=== PATIENT | male | born 1970 | race Caucasian/White ===

== ENCOUNTER 2020-07-25 21:09 | Emergency (ER) | payer SELFPAY ==
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
[2020-07-25 21:15] VITALS: BP 141/82; PULSE 101; RESP 20; TEMP 37.1; O2SAT 97
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
[2020-07-25 21:43] LABS: Basophils Absolute Auto 0.05 K/mm3 (0.00-0.10); Basophils Percent Auto 0.8 % (0.0-1.0); Eosinophils Absolute Auto 0.05 K/mm3 (0.02-0.50); Eosinophils Percent Auto 0.8 % (1.0-6.0); Hematocrit 39.4 % (40.0-54.0); Hemoglobin 13.5 g/dL (14.0-18.0); Immature Granulocyte Absolute 0.07 K/mm3 (0.00-0.00); Immature Granulocyte Percent A 1.1 % (0.0-0.0); Lymphocytes Absolute Auto 1.65 K/mm3 (1.10-4.50); Lymphocytes Percent Auto 24.8 % (18.0-42.0); Mean Corpuscular HGB Conc 34.3 g/dL (32.0-36.0); Mean Corpuscular Hemoglobin 34.2 pg (27.0-31.0); Mean Corpuscular Volume 99.7 fL (78.0-102.0); Mean Platelet Volume 8.3 fl (8.7-11.0); Monocytes Absolute Auto 0.69 K/mm3 (0.10-0.90); Monocytes Percent Auto 10.4 % (2.0-11.0); Neutrophils Absolute Auto 4.1 K/mm3 (1.7-7.2); Neutrophils Percent Auto 62.1 % (50.0-70.0); Platelet Count Result 303 K/mm3 (150-420); Red Blood Count 3.95 M/mm3 (4.70-6.10); Red Cell Distribution Width 13.2 % (11.6-14.4); White Blood Count 6.7 K/mm3 (4.8-10.8)
[2020-07-25 21:59] LABS: Alanine Aminotransferase 20 U/L (16-63); Albumin Level 2.7 g/dL (3.4-5.0); Alkaline Phosphatase 69 U/L (46-116); Anion Gap 8 mmol/L (8-16); Aspartate Amino Transferase 25 U/L (15-37); Bilirubin,Total 0.4 mg/dL (0.00-1.00); Blood Urea Nitrogen 5 mg/dL (7-18); Calcium 8.7 mg/dL (8.5-10.1); Carbon Dioxide 27 mmol/L (21-32); Chloride 106 mmol/L (98-108); Estimated Glomerular Filt Rate > 60; Glucose 101 mg/dL (70-99); Osmolality Calculated 289 mOsm/kg (285-295); Sodium 141 mmol/L (136-145); Total Protein 6.5 g/dL (6.4-8.2)
[2020-07-25 23:57] VITALS: BP 154/90; PULSE 84; RESP 18; TEMP 37.2; O2SAT 98
== END 2020-07-26 00:06 | disposition home or self-care (01) ==
PROVIDERS: Emergency Provider Family Medicine; PCP Family Medicine
DX: S30.0XXA Contusion of lower back and pelvis, initial encounter (principal); J44.9 Chronic obstructive pulmonary disease, unspecified; W22.8XXA Striking against or struck by other objects, initial encounter
CPT/HCPCS: 36415; 74177; 80053; 85025; 99282; 99284; Q9965

== ENCOUNTER 2021-11-23 14:31 | Outpatient (CLI) | payer OTHER, SELFPAY ==
--- NOTE | ~2021-11-23 | XR_ITS ---
XR wrist RT min 3V DATE: 11/23/2021 14:47 INDICATION: Right generalized wrist pain for 5 days TECHNIQUE: 4 views COMPARISON: None FINDINGS: No fracture or dislocation, periosteal reaction or bone destruction, erosive change or debi drocalcinosis is detected. Joint spaces appear relatively well preserved. IMPRESSION: No significant abnormality Reviewed, dictated and finalized at location A. O NEWS EDITOR IMPRESSION: No significant abnormality
== END 2021-11-23 14:32 | disposition home or self-care (01) ==
LOC: CHSIMG 14:33
PROVIDERS: PCP Physician Assistant; Visit Provider Physician Assistant
DX: M25.531 Pain in right wrist (principal)
CPT/HCPCS: 73110

== ENCOUNTER 2022-04-18 13:26 | Emergency (ER) | payer OTHER, SELFPAY ==
--- NOTE | ~2022-04-18 | CT_ITS ---
EXAMINATION: CT facial bones wo con DATE: 04/18/2022 14:50 INDICATION: Right facial swelling. Toothache. TECHNIQUE: Computed tomography (CT) of the facial bones and maxillofacial region was performed withou t intravenous contrast. Automated exposure control and iterative reconstruction technique were employ ed. The dose-length product was 281.08 mGy-cm. COMPARISON: None. FINDINGS: There is mild mucosal thickening in the paranasal sinuses. There is extensive dental diseas e. Tooth 5 demonstrates a carious lesion. Tooth 4 is broken with periapical lucencies. Tooth 11 demon strates a carious lesion. Many teeth are absent. A left mandibular molar that may be tooth 18 demonst rates a carious lesion. There are 2 right mandibular molars with carious lesions that may be teeth 31 and 32. Tooth 31 also has periapical lucencies with breech of the lingual cortex of the alveolar pro cess. There is extensive fat stranding in right lower face, consistent with inflammation. There is se tiffanie cervical spondylosis. IMPRESSION: 1. Extensive dental disease with right facial cellulitis. Reviewed, dictated and finalized at location A.
[2022-04-18 13:30] VITALS: BP 133/91; PULSE 93; RESP 20; TEMP 36.3; O2SAT 99
[2022-04-18] MEDS: KETOROLAC 30 MG/ML VIAL (*BKC) IM (14:31)
[2022-04-18] MEDS: cefTRIAXone 1 GM VIAL IM (14:33)
[2022-04-18] MEDS: LIDOCAINE HCL 1% LOCAL INJ 10 ML VIAL (14:34)
[2022-04-18 15:20] VITALS: BP 133/91; PULSE 94; RESP 20; TEMP 37.1; O2SAT 99
--- NOTE | 2022-04-18 15:30 | ED.DENTAL ---
HPI - Dental/Oral General Chief complaint: Dental/Oral Stated complaint: DENTAL PAIN Time Seen by Provider: 04/18/22 13:29 Source: patient History of Present Illness HPI Narrative: right facial swelling, after starting antibx and analgesia Rx on 04/17/2022. Complaint: tooth pain Onset (ago): week(s) (2 weeks, awaiting dental appt.) Duration: constant Severity: moderate Severity scale (1-10): 8 Relieving factors: prescription analgesics Exacerbating factors: chewing Context: history of dental caries and poor dental care Associated symptoms: ear pain Treatment prior to arrival: oral analgesic Related Data Home Medications Medication Instructions Recorded Confirmed allopurinol 100 mg tablet 1 tablet PO DAILY 04/18/22 04/18/22 atorvastatin 40 mg tablet 40 tablet PO DAILY 04/18/22 04/18/22 fenofibrate nanocrystallized 145 1 tablet PO DAILY 04/18/22 04/18/22 mg tablet losartan 50 mg tablet 1 tablet PO DAILY 04/18/22 04/18/22 Allergies Allergy/AdvReac Type Severity Reaction Status Date / Time lisinopril Allergy Swelling Verified 03/30/21 10:04 Review of Systems Review of Systems: All systems reviewed & are unremarkable except as noted in HPI and below Constitutional: Constitutional: Reports no additional constitutional complaints Eyes: Eyes: Reports no additional eye complaints ENT: Reports system reviewed and no additional complaints, except as documented Cardiovascular: Cardiovascular: Reports no additional cardiovascular complaints Respiratory: Respiratory: Reports no additional respiratory complaints Gastrointestinal: Gastrointestinal: Reports no additional gastrointestinal complaints Musculoskeletal: Musculoskeletal: Reports no additional musculoskeletal complaints Integumentary/Breasts: Skin/Breast: Reports system reviewed and no additional complaints, except as docu Neurologic: Reports system reviewed and no additional complaints, except as documented Psychiatric: Psychiatric: Reports no additional psychiatric complaints Endocrine: Endocrine: Reports no additional endocrine complaints Hematologic/Lymphatic: Hematologic/Lymphatic: Reports no additional hematologic/lymphatic complaints Allergic/Immunologic: Allergic/Immunologic: Reports no additional allergic/immunologic complaints PMFSH Past Medical History Medical History Cellulitis of face Dental caries Exam Const: General: healthy appearing and no acute distress Nutritional Appearance: well nourished Orientation/consciousness: patient oriented x3 Limitations: no limitations HENMT: Head: normal to inspection Ears: external ears normal, TM's normal bilaterally and EAC's normal General nose exam: Normal external nose present and Normal nares present Face and sinus: normal facial exam and sinuses nontender Mouth: Yes Normal oral and palatal mucosa present and Yes moist mucous membranes Teeth and gingiva: abnormal dentition and abnormal tooth and associated gingiva Throat: posterior oropharynx normal Other: mild right facial swelling. no acute pharyngeal or ear abnormality. Eyes: Conjunctivae: conjunctivae normal Pupils: Equal, round and reactive pupils present EOM: EOMs intact bilaterally Neck: Neck: normal visual inspection, no lymphadenopathy and no meningeal signs Chest: Chest palpation & inspection: normal inspection of the chest Resp: Effort & Inspection: normal respiratory effort Auscultation: clear to auscultation bilaterally Cardio: Rate: regular rate Rhythm: regular rhythm GI: GI Palp: Yes Soft to palpation and No Tenderness to palpation present (GI) Auscultation: normal bowel sounds : General: Yes bladder normal to palpation and Yes no CVA tenderness Back/Spine/Pelvis: Back: no CVA tenderness Skin: General skin exam: normal color Rashes: no rashes Wounds: no wounds Neuro: General: patient oriented x3, moves all extremities, no meningeal signs, no
== END 2022-04-18 15:38 | disposition home or self-care (01) ==
PROVIDERS: Emergency Provider Emergency Medicine; PCP Physician Assistant
DX: K02.9 Dental caries, unspecified (principal); L03.211 Cellulitis of face
CPT/HCPCS: 70486; 96372; 99284; J0696; J1885

== ENCOUNTER 2022-08-23 01:43 | Day surgery (SDC) | payer OTHER, SELFPAY ==
[2022-08-06 14:24] VITALS: BMI 19.7
[2022-08-23 10:33] VITALS: BP 147/92; PULSE 72; RESP 20; TEMP 36.3; O2SAT 100; BMI 19.5
[2022-08-23] MEDS: LACTATED RINGERS 1,000 ML 150 ML IV CONT (10:43)
--- NOTE | 2022-08-23 10:53 | P.HP_ITS ---
History of Present Illness History of Present Illness Consent: Risks, benefits, and alternatives have been discussed and questions answered. Patient agrees to proceed with procedure. Chief complaint: hx colon polyps, neoplasm screening Narrative: Álvaro Byrne is a 51 year old male Referred for screening colonoscopy. Patient reports a prior history of colon polyps 3 years ago. He states 3 years prior to that he had multiple colon polyps. Patient reports his weight appetite and bowel movements are normal. He occasionally will have bright red blood per rectum attributed to hemorrhoids. This was noticed especially after prep for colonoscopy patient denies any weight loss. Family history is noncontributory. Patient presents today for screening colonoscopy. He does report ongoing alcohol use. Review of Systems Review of Systems: Review of systems noncontributory. [facility] Past Medical History Medical History Cellulitis of face Dental caries Social History Social History Smoking packs per day: 1 Smoking cigarettes per day: 20.0 Years smoked: 42 Smoking pack-years: 42.00 Smoking status: Current every day smoker Tobacco type: cigarettes Alcohol intake: current Alcohol use details: on occasion Substance use: current Substance use type: marijuana Living arrangements: with family Spiritual care concerns: No Meds Home Medications and Allergies Home Medications Medication Instructions Recorded Confirmed Type allopurinol 100 mg tablet 1 tablet PO DAILY 04/18/22 08/23/22 History atorvastatin 40 mg tablet 40 tablet PO DAILY 04/18/22 08/23/22 History fenofibrate nanocrystallized 145 1 tablet PO DAILY 04/18/22 08/23/22 History mg tablet losartan 50 mg tablet 1 tablet PO DAILY 04/18/22 08/23/22 History peg 3350-electrolytes 236 240 ml PO Q10M #4,000 mL 07/31/22 08/23/22 Rx gram-22.74 gram-6.74 gram-5.86 gram solution (Golytely) budesonide-formoterol HFA 160 2 puff inhalation DAILY 08/06/22 08/23/22 History mcg-4.5 mcg/actuation aerosol inhaler (Symbicort) Allergies Allergy/AdvReac Type Severity Reaction Status Date / Time lisinopril Allergy Swelling Verified 08/23/22 10:32 Vital Signs Vital Signs - 24 hr 08/23/22 10:33 Temperature 97.4 F L Pulse Rate 72 Respiratory Rate 20 Blood Pressure 147/92 H Pulse Oximetry 100 Oxygen Delivery Room Air Exam Narrative: Physical exam reveals patient to be alert. Vital signs stable. HEENT exam is unremarkable. Patient is anicteric. Lungs are clear to auscultation and percussion. Heart is without murmur or extra sounds. Abdomen bowel sounds are present soft nontender with no organomegaly. Digital external rectal exam is normal. Assessment and Plan Assessment and plan (1) History of colon polyps: Code(s): Z86.010 - Personal history of colonic polyps Status: Acute Assessment and Plan: Patient has a history of colon polyps previously. Plan for colonoscopy at this time and consider this at 3-5 years in the future.
[2022-08-23 11:43] VITALS: BP 116/76; PULSE 74; RESP 18; O2SAT 98
[2022-08-23 11:53] VITALS: BP 121/81; PULSE 70; RESP 17; O2SAT 99
[2022-08-23 12:03] VITALS: BP 134/92; PULSE 69; RESP 17; O2SAT 99
== END 2022-08-23 12:12 | disposition home or self-care (01) ==
PROVIDERS: PCP Physician Assistant; Visit Provider Internal Medicine Gastroenterology
PROC: 0DJD8ZZ Inspection of Lower Intestinal Tract, Via Natural or Artificial Opening Endoscopic (ICD-10-PCS; CPT 45378; principal; 2022-08-23 11:30)
DX: Z12.11 Encounter for screening for malignant neoplasm of colon (principal); D12.5 Benign neoplasm of sigmoid colon; K62.5 Hemorrhage of anus and rectum; K57.30 Diverticulosis of large intestine without perforation or abscess without bleeding; K64.8 Other hemorrhoids; F17.210 Nicotine dependence, cigarettes, uncomplicated; F12.90 Cannabis use, unspecified, uncomplicated
CPT/HCPCS: 45385; 88305; J2704; J7120

== ENCOUNTER 2024-02-02 18:20 | Emergency (ER) | payer OTHER, SELFPAY ==
--- NOTE | ~2024-02-02 | CT_ITS ---
EXAMINATION: CT abdomen pelvis w con DATE: 02/02/2024 19:29 INDICATION: right lower quadrant pain N/V diarrhea fever TECHNIQUE: Computed tomography (CT) of the abdomen and pelvis was performed with 100 mL Omnipaque-350 intravenous contrast. Automated exposure control and iterative reconstruction technique were employe d. The dose-length product was 364.60 mGy-cm. COMPARISON: None. FINDINGS: Lower thorax: Unremarkable Liver: Mildly enlarged. Biliary/Gallbladder: Gallbladder wall hyperemia. No gallstones detected. The common bile duct measure s 8 mm in the josie hepatis. No obstructing stone or mass detected. Pancreas: Mild atrophy. Mild dilation of the proximal pancreatic duct in the pancreatic head, with a small gas collection, which was noted previously and presumably related to an incompetent sphincter o f Oddi. Spleen: Normal. Adrenals:No mass. Kidneys: No suspicious mass, obstructing stone, or hydronephrosis. GI tract: Moderate distal esophageal and gastric wall edema. No small or large bowel dilation. 4.1 x 6.2 cm fluid and gas collection along the medial aspect of the cecum with mild rim enhancement and an associated ruptured diverticulum. Normal appendix. Mesentery/Peritoneum: No ascites, mass, or free air. Retroperitoneum: No mass. Pelvis: Pelvic organs are within normal limits. Soft Tissues: Soft tissues and body wall unremarkable. Bones: No acute osseous finding. IMPRESSION: Acute cecal diverticulitis, complicated by an adjacent 6.2 cm pericolonic abscess. Moderate esophagitis/gastritis. Mild hepatomegaly. Gallbladder wall hyperemia with dilation of the common bile duct. No obstructing stone or mass detect ed. Correlate with biliary labs. Reviewed, dictated and finalized at location K. IMPRESSION: Acute cecal diverticulitis, complicated by an adjacent 6.2 cm pericolonic absce ss. Moderate esophagitis/gastritis. Mild hepatomegaly. Gallbladder wall hyperemia with dilation of the common bile duct. No obstructin g stone or mass detected. Correlate with biliary labs.
[2024-02-02 18:23] VITALS: BP 120/81; PULSE 92; RESP 20; TEMP 37.9; O2SAT 99
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
[2024-02-02] MEDS: SODIUM CHLORIDE 0.9% IV 1,000 ML 999 ML IV CONT (18:43)
[2024-02-02] MEDS: MORPHINE SULFATE (*CRX) 2 MG/ML INJ IV PUSH (18:44)
[2024-02-02] MEDS: ONDANSETRON INJ 4 MG/2 ML VIAL IV PUSH (18:44)
[2024-02-02] MEDS: ACETAMINOPHEN 325 MG TABLET 650 MG PO (18:44)
[2024-02-02 18:52] LABS: Basophils Absolute Auto 0.05 K/mm3 (0.00-0.10); Basophils Percent Auto 0.4 % (0.0-1.0); Eosinophils Absolute Auto 0.09 K/mm3 (0.02-0.50); Eosinophils Percent Auto 0.6 % (1.0-6.0); Hematocrit 41.9 % (40.0-54.0); Hemoglobin 14.3 g/dL (14.0-18.0); Immature Granulocyte Absolute 0.13 K/mm3 (0.00-0.00); Immature Granulocyte Percent A 0.9 % (0.0-0.0); Lymphocytes Absolute Auto 1.77 K/mm3 (1.10-4.50); Lymphocytes Percent Auto 12.5 % (18.0-42.0); Mean Corpuscular HGB Conc 34.1 g/dL (32-36); Mean Corpuscular Hemoglobin 32.4 pg (27.0-31.0); Mean Platelet Volume 8.7 fl (8.7-11.0); Monocytes Absolute Auto 1.66 K/mm3 (0.10-0.90); Monocytes Percent Auto 11.7 % (2.0-11.0); Neutrophils Percent Auto 73.9 % (50.0-70.0); Platelet Count Result 420 K/mm3 (150-420); Red Blood Count 4.41 M/mm3 (4.70-6.10); Red Cell Distribution Width 11.9 % (11.6-14.4); White Blood Count 14.2 K/mm3 (4.8-10.8)
[2024-02-02 19:09] LABS: Alanine Aminotransferase 24 U/L (16-63); Albumin Level 2.5 g/dL (3.4-5.0); Alkaline Phosphatase 59 U/L (46-116); Anion Gap 12 mmol/L (8-16); Aspartate Amino Transferase 40 U/L (15-37); Bilirubin,Total 0.3 mg/dL (0.00-1.00); Blood Urea Nitrogen 9 mg/dL (7-18); Calcium 8.8 mg/dL (8.5-10.1); Carbon Dioxide 28 mmol/L (21-32); Chloride 99 mmol/L (98-108); Estimated CRCL calculation 56 ml/min; Estimated Glomerular Filt Rate 56; Glucose 110 mg/dL (70-99); Lipase 29 U/L (16-77); Osmolality Calculated 287 mOsm/kg (285-295); Potassium 3.6 mmol/L (3.5-5.1); Sodium 139 mmol/L (136-145); Total Protein 7.4 g/dL (6.4-8.2)
[2024-02-02 19:14] LABS: Lactic Acid Reflex 1.6 mmol/L (0.4-2.0)
[2024-02-02 19:27] LABS: Ethanol < 3 mg/dL (0-6)
[2024-02-02 19:31] VITALS: BP 129/79; PULSE 90; RESP 18; TEMP 37.8; O2SAT 97
[2024-02-02 19:31] LABS: Influenza A QL RT-PCR Negative (Negative); Influenza B QL RT-PCR Negative (Negative); RSV RNA, RT-PCR Negative (Negative); SARS-CoV-2 RNA PCR Negative (Negative)
--- NOTE | 2024-02-02 19:59 | PC.NURSE ---
Pt resting, VSS, CT report back and ERP Dr Rodriguez discussing results c pt and s.o. and POC. Pt wanting transfer to [place].
[2024-02-02] MEDS: SODIUM CHLORIDE 0.9% IV 1,000 ML 125 ML IV CONT (20:11)
[2024-02-02] MEDS: PIPERACILLN/TAZ 3.375GM/NS50ML 3.375 GM/50 ML BAG IVPB (20:21)
[2024-02-02] MEDS: NICOTINE (*PBKC) 21 MG PATCH 1 PATCH TRANSDERM (20:27)
[2024-02-02 21:00] VITALS: BP 98/62; PULSE 94; RESP 18; TEMP 37.7; O2SAT 94
--- NOTE | 2024-02-02 21:09 | PC.NURSE ---
Pt resting, using urinal at bedside, Pt informed that Dr Powers accepted at [facility] for transfer and will await callback for bed assignment
[2024-02-02 21:34] VITALS: BP 113/72; PULSE 86; RESP 18; O2SAT 95
--- NOTE | 2024-02-02 21:37 | PC.NURSE ---
IVF increased to 200ml/hr per ERP order. Pt wanting something more for pain and to help him relax to sleep tonight. New orders obtained.
[2024-02-02] MEDS: diazePAM (*CRX) 5 MG TABLET PO (21:45)
[2024-02-02 22:07] VITALS: BP 95/72; PULSE 85; RESP 18; TEMP 37.5; O2SAT 95
--- NOTE | 2024-02-09 13:11 | PC.NURSE ---
blood culture reviewed, no growth in 5 days
== END 2024-02-02 22:07 | disposition short-term general hospital (02) ==
PROVIDERS: Emergency Provider Emergency Medicine; PCP Physician Assistant
DX: K57.20 Diverticulitis of large intestine with perforation and abscess without bleeding (principal); E78.5 Hyperlipidemia, unspecified; I10 Essential (primary) hypertension; Z79.899 Other long term (current) drug therapy; F17.210 Nicotine dependence, cigarettes, uncomplicated; Z20.822 Contact with and (suspected) exposure to COVID-19
CPT/HCPCS: 36415; 74177; 80053; 80307; 83605; 83690; 85025; 87040; 87637; 96361; 96365; 96375; 99285; A9270; J2270; J2405; J2543; J7030; Q9967

== ENCOUNTER 2024-07-14 23:36 | Emergency (ER) | payer OTHER, SELFPAY ==
[2024-07-14 23:37] VITALS: BP 134/84; PULSE 103; RESP 18; TEMP 36.7; O2SAT 95
--- NOTE | 2024-07-14 23:43 | ED.ANIMALBIT ---
HPI - Animal Bite General Chief Complaint: Animal Bite Stated Complaint: dog bite to left arm Time Seen by Provider: 07/14/24 23:43 Source: patient Mode of arrival: ambulatory Limitations: no limitations History of Present Illness HPI narrative: patient is a 53-year-old male with a left posterior arm dog bite. The dog is his own dog that is up-to-date on shots. It was a provoked event over a hot dog. Patient needs a tetanus booster tonight. MD complaint: animal bite and animal-related injury ( His own dog with shots up-to-date per patient) Onset (ago): minute(s) (30) Animal: dog Description of animal: household pet Mechanism: bite Location: other ( left upper arm posterior) Location - Extremities: Left: arm Pain description: sharp and constant Severity scale (1-10): 3 Context: provoked ( fight was over a hot dog) Associated symptoms: none Treatments prior to arrival: wound dressing(s) Related Data Patient tetanus UTD: No Home Medications Medication Instructions Recorded Confirmed allopurinol 100 mg tablet 1 tablet PO DAILY 04/18/22 02/02/24 atorvastatin 40 mg tablet 40 tablet PO DAILY 04/18/22 02/02/24 fenofibrate nanocrystallized 145 1 tablet PO DAILY 04/18/22 02/02/24 mg tablet losartan 50 mg tablet 1 tablet PO DAILY 04/18/22 02/02/24 budesonide-formoterol HFA 160 2 puff inhalation BID 08/06/22 02/02/24 mcg-4.5 mcg/actuation aerosol inhaler (Symbicort) Allergies Allergy/AdvReac Type Severity Reaction Status Date / Time lisinopril Allergy Swelling Verified 02/02/24 18:27 Review of Systems Review of Systems: All systems reviewed & are unremarkable except as noted in HPI and below Constitutional: Constitutional: Reports no additional constitutional complaints Eyes: Eyes: Reports no additional eye complaints ENT: Reports system reviewed and no additional complaints, except as documented Cardiovascular: Cardiovascular: Reports no additional cardiovascular complaints Respiratory: Respiratory: Reports no additional respiratory complaints Gastrointestinal: Gastrointestinal: Reports no additional gastrointestinal complaints Genitourinary: Genitourinary: Reports no additional male genitourinary complaints Musculoskeletal: Musculoskeletal: Reports no additional musculoskeletal complaints Integumentary/Breasts: Skin/Breast: Reports system reviewed and no additional complaints, except as docu Neurologic: Reports system reviewed and no additional complaints, except as documented Psychiatric: Psychiatric: Reports no additional psychiatric complaints Endocrine: Endocrine: Reports no additional endocrine complaints Hematologic/Lymphatic: Hematologic/Lymphatic: Reports no additional hematologic/lymphatic complaints Allergic/Immunologic: Allergic/Immunologic: Reports no additional allergic/immunologic complaints PMFSH Past Medical History Medical History Cellulitis of face Dental caries Social History Social History Smoking packs per day: 1 Smoking cigarettes per day: 20.0 Years smoked: 42 Smoking pack-years: 42.00 Smoking status: Current every day smoker Tobacco type: cigarettes Alcohol intake: current Alcohol use details: on occasion Substance use: current Substance use type: marijuana Living arrangements: with family Spiritual care concerns: No Exam Const: General: healthy appearing Nutritional Appearance: well nourished Orientation/consciousness: patient oriented x3 HENMT: Head: normal to inspection Ears: external ears normal Face/Nose/Sinus: Normal external nose present Eyes: Conjunctivae: conjunctivae normal Pupils: Equal, round and reactive pupils present EOM: EOMs intact bilaterally Neck: Neck: normal visual inspection Chest: Chest palpation & inspection: normal inspection of the chest Resp: Effort & Inspection: normal respiratory effort
[2024-07-15] MEDS: TETANUS,DIPHTHERIA,AC PERTUSSIS ADULT 0.5 ML (ADACEL) IM (00:05)
[2024-07-15] MEDS: AMOXICILLIN/CLAVULANATE K 875-125 MG TAB 1 TABLET PO (00:07)
[2024-07-15] MEDS: NEOMYCIN/POLYMYXIN/BACITRACIN OINTMENT PACKET 1 PACKET TOPICAL (00:15)
== END 2024-07-15 00:25 | disposition home or self-care (01) ==
PROVIDERS: Emergency Provider Emergency Medicine; PCP Physician Assistant
DX: S41.152A Open bite of left upper arm, initial encounter (principal); F17.210 Nicotine dependence, cigarettes, uncomplicated; Z23 Encounter for immunization; W54.0XXA Bitten by dog, initial encounter
CPT/HCPCS: 12001; 90715; 99283; A9270

== ENCOUNTER 2025-01-30 07:26 | Emergency (ER) | payer OTHER, SELFPAY ==
--- OUTSIDE RECORDS SUMMARY | 2025-01-30 07:29 | XMS_ITS | Clinical Summary ---
Author Organization [facility] Address [address] [place] [address] Care Team Providers Care Home Health Scheduler Name Role Phone Ulises Markham Primary Care Provider [phone] Allergies No known active allergies Medications budesonide-formo terol (SYMBICORT) 160-4.5 MCG/ACT inhaler Inhale 2 puffs into the lungs 2 (two) times daily. 11/05/2017 Active gemfibrozil 600 MG tablet Take 1 tablet by mouth daily. 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 Gender Identity Not on file Sexual Orientation Not on file Last Filed Vital Signs Vital Sign Reading Time Taken Comments Blood Pressure 134/93 07/26/2021 2:32 PM CDT Pulse 94 07/26/2021 2:45 PM CDT Temperature 37.9 C (100.3 F) 07/26/2021 2:32 PM CDT Respiratory Rate 15 07/26/2021 2:45 PM CDT Oxygen Saturation 96% 07/26/2021 2:45 PM CDT Inhaled Oxygen Concentration - - Weight 65.4 kg (144 lb 2 oz) 07/26/2021 2:32 PM CDT Height 182.9 cm (6') 07/26/2021 2:32 PM CDT Body Mass Index 19.55 07/26/2021 2:32 PM CDT Plan of Treatment Health Maintenance Due Date Last Done Comments Colorectal Cancer Screening Colonoscopy (10 Years) 1969 Annual Physical 1972 Pneumococcal Vaccine: Pediat rics (0 to 5 Years) and At-Risk Patients (6 to 64 Years) (1 of 2 - PCV) 1975 Hepatitis C 1987 DTaP, Tdap and Td Vaccines ( 1 - Tdap) 1988 Hepatitis B Vaccines (1 of 3 - 19+ 3-dose series) 1988 Zoster Vaccines (1 of 2) 2019 COVID-19 Vaccine (1 - 2023-2 5 season) 2024 Influenza Adult (#1) 2024 Meningococcal B Vaccine Aged Out No l onger eligible based on patient's age to complete this topic Meningococcal Vaccine Aged Out No lizette nathalie eligible based on patient's age to complete this topic RSV Immunizations Under 20 Months Aged Out No longer eligible based on patient's age to complete this topic Insurance [employer] Care Teams Home Health Scheduler Relationship Specialty Start Date End Date Ulises Markham PA [address] [place] [address] PCP - General PHYSICIAN LINING VAMPER 11/21/21
--- OUTSIDE RECORDS SUMMARY | 2025-01-30 07:29 | XMS_ITS | Data Portability ---
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 He was found to have complicated cecal diverticulitis. He had a pericolic abscess which was managed with antibiotics and an IR drain. He has been doing well at home. He denies any abdominal pain. He is tolerating a diet and having bowel movements with no issues. His drain has had minimal output. He is seeing IR in today for a drain study. Hopefully he can be removed. I explained to him that we need to proceed with a colonoscopy to rule out any underlying sinister pathology. Will plan on doing this in the 6 to 8 weeks to give his colon some time to heal. We could consider elective resection after that however he will need to quit drinking and smoking prior to surgery given the risk for perioperative complications. Not available 02/18/2024 15:23:14 04/03/2024 04/03/2024 The history and physical has been reviewed, the patient has been examined and no change has occurred in the patient's condition since the history and physical was completed. [email or web address] Not available 04/03/2024 11:46:27 Plan of Treatment Reminders Order Date Submit Date Provider Last Modified By Organization Details Last Modified Time Details Appointments None record ed. Lab None record ed. Referral None record ed. Procedures None record ed. Surgeries None record ed. Imaging None record ed. Medication Orders None record ed. Patient TargetsNo targets recorded. Patient InstructionsNo instructions recorded. Reason for Referral None Reported. Results Created Date Observation Date Name Description Value Unit Range Abnormal Flag Note LastModifiedBy Organization Detail LastModifiedTime 02/06/20 24 02/12/2024 C ANAER OBIC anaerobic culture (new) abnormal Print Date/ Time: 2023 13:39 CDT Patie n REEVE S, KEN N t: Micro biolo gy - Wound s and Tissu es Legen d: c=Cor recte d, F=Res ult Comme nt, S=Minerva cepti ble, I=Int ermed iate, R=Res istan t, N/A=N ot Appli cable PROCE DURE: Anaer obic Cultu re [] ACCES NUBIA: 75 SOURC E: Other BODY SITE: Abdom en COLLE CTED DATE/ TIME: 2023 13:51 CDT RECEI JEFFERY DATE/ TIME: 2023 14:49 CDT START DATE/ TIME: 2023 14:49 CDT FREE TEXT SOURC E: abdom inal absce ss, IR drain age AM ENDED REPOR TS Amend ed Repor t [] Verif ied Date/ Time: 2023 13:39 CDT Many Bacte roide s fragi lis Group This organ ism may poten tiall y be treat ed empir icall y. Susce ptibi lity testi ng will not be perfo rmed The antim icrob ial agent of choic e for Bacte roide s fragi lis group is metro nidaz ole; piper acill in/ta zobac maloney is an alter nativ e. (Prin ciple s and Pract ice of Infec tious Disea ses 2009. Eulalia justice et.al .) FI NAL REPOR TS Final Repor t [] Verif ied Date/ Time: 2023 14:33 CDT Many Bacte roide s fragi lis This organ ism may poten tiall y be treat ed empir icall y. Susce ptibi lity testi ng will not be perfo rmed The antim icrob ial agent of choic e for Bacte roide s fragi lis group is metro nidaz ole; piper acill in/ta zobac maloney is an alter nativ e. (Prin ciple s and Pract ice of Infec tious Disea ses 2009. Eulalia justice et.al .) [place] ELIMI NARY REPOR TS Preli minar y Repor t [] Verif ied Date/ Time: 2023 15:45 CDT Cultu re in progr ess Not Available [place] Only - [facility] [address] [facility], [place], [address], 02/12/2024 14:39:20 02/06/20 24 02/11/2024 C ANAER OBIC anaerobic culture (new) abnormal Print Date/ Time: 2023 14:33 CDT Patie n REEVE S, KEN N t: Micro biolo gy - Wound s and Tissu es Legen d: c=Cor recte d, F=Res ult Comme nt, S=Minerva cepti ble, I=Int ermed iate, R=Res istan t, N/A=N ot Appli cable PROCE DURE: Anaer obic Cultu re [] ACCES NUBIA: 003 751 SOURC E: Other BODY SITE: Abdom en COLLE CTED DATE/ TIME: 2023 13:51 CDT RECEI JEFFERY DATE/ TIME: 2023 14:49 CDT START DATE/ TIME: 2023 14:49 CDT FREE TEXT SOURC E: abdom inal absce ss, IR drain age FI NAL REPOR TS Final Repor t [] Verif ied Date/ Time: 2023 14:33 CDT Many Bacte roide s fragi lis This organ ism may poten tiall y be treat ed empir icall y. Susce ptibi lity testi ng will not be perfo rmed The antim icrob ial agent of choic e for Bacte roide s fragi lis group is metro nidaz ole; piper acill in/ta zobac maloney is an alter nativ e. (Prin ciple s and Pract ice of Infec tious Disea ses 2009. Eulalia justice et.al .) [place] ELIMI NARY REPOR TS Preli minar y Repor t [] Verif ied Date/ Time: 2023 15:45 CDT Cultu re in progr ess Not Available [place] Only - [facility] [address], [place], [address], 02/11/2024 15:33:39 02/06/20 24 02/06/2024 cultu re, anaer obic anaerobic culture abnormal print date/ time: 2023 13:39 cdt patie n reeve s, ken n t: micro biolo gy - wound s and tissu es legen d: c=cor recte d, F=res ult comme nt, S=minerva cepti ble, I=int ermed iate, R=res istan t, n/a=n ot appli cable proce dure: anaer obic cultu re [] acces nubia: 751 sourc e: other body site: abdom en colle cted date/ time: 2023 13:51 cdt recei jeffery date/ time: 2023 14:49 cdt start date/ time: 2023 14:49 cdt free text sourc e: abdom inal absce ss, ir drain age am ended repor ts amend ed repor t [] verif ied date/ time: 2023 13:39 cdt many bacte roide s fragi lis group this organ ism may poten tiall y BE treat ed empir icall y. susce ptibi lity testi ng will not BE perfo rmed the antim icrob ial agent of choic e for bacte roide s fragi lis group IS metro nidaz ole; piper acill in/ta zobac maloney IS an alter nativ e. (prin ciple s and pract ice of infec tious disea ses 2009. eulalia justice ET.al .) fi nal repor ts final repor t [] verif ied date/ time: 2023 14:33 cdt many bacte roide s fragi lis this organ ism may poten tiall y BE treat ed empir icall y. susce ptibi lity testi ng will not BE perfo rmed the antim icrob ial agent of choic e for bacte richmond s fragi lis group IS metro nidaz ole; piper acill in/ta zobac maloney IS an alter nativ e. (prin ciple s and pract ice of infec tious disea ses 2009. eulalia ll ET.al .) pr elimi nary repor ts preli minar y repor t [] verif ied date/ time: 2023 15:45 cdt cultu re in progr ess Not Available [facility] [address] [place] [address], [id number], 11/04/2024 07:28:30 04/03/20 24 04/09/2024 surgi mesha patho logy study tissue exam biopsy [facility] [address] [address] Ph. [phone] Doc Kimble MD, PhD, Medic al Direc tor MARIO Wilson JR., CRISSY Jensen MD Patie nt: KEN CALDERÓN Sampl e ID: [id number] Repor t Statu s: Final :1 1969 Case #: [id number] Age: 53 Y Gende r: M Date Colle cted: 04/03 MRN # : [id number] Date Recei jeffery: 04/03 Repor christie Date: 04/09 FINAL DIAGN OSIS: Colon , hepat ic flexu re polyp , biops y : - Tubul ar adeno idalia Elect atif richard Verif ied by Jenny Perdomo MD Elect atif patterson 04/09 12:28 SPECI MEN SOURC E: Colon , hepat ic flexu re polyp , biops y GROSS DESCR IPTIO N: The speci men conta iner( s) and requi sitio n have the same patie nt name. Recei jeffery in 10% neutr al buffe red forma jenny for forma jenny-f ixed paraf fin-e mbedd ed secti ons label ed A, hepat ic flexu re polyp is a singl e fragm ent of shaffer- miller soft tissu e that is 0.3 cm in great est dimen nubia. The speci men is entir zaire submi tted for histo logic study in one casse tte. CLINI MESHA INFOR MATIO N: Histo ry of diver ticul osis of colon with perfo ratio n. Not Available [facility] Only - [facility] [address] [place] [address], [id number], 04/09/2024 13:29:55 Result Notes None recorded. Problems Name Problem SNOMED Code Status Onset Date Resolution Date Notes Provider Name and Address Organization Details Recorded Time Diverticulitis of colon with perforation 74835184 Active 2023 Crissy Powers MD [address] [place] [address], [phone] [place] [address] 4 15:23:37 Problem Notes None recorded. Procedures Surgical History Date Name Laterality Status Provider Name and Address Organization Details Recorded Time colonoscopy completed Yessenia Cisneros [facility] 04/15/2024 12:14:19 Imaging Results None recorded. Procedure Notes None recorded. Medical Equipment None Reported. Allergies Allergen ID Allergen Name Allergen Category Reaction Reaction Severity Criticality Documentation Date Start Date Code Code System Note Provider Name and Address Organization Details Recorded Time [id number] enalapril Not available other severe Not available 02/18/2024 3827 RxNorm tongu e swell ing Not Available Not Available Not Available Medications Name Sig Start Date Stop Date Status Note LastModified by Organization Details LastModified Time losartan 50 mg tablet 04/03 completed Not Available Not Available Not Available atorvastatin 40 mg tablet active Not Available Not Available Not Available ibuprofen 800 mg tablet 02/17 completed Not Available Not Available Not Available moxifloxacin 400 mg tablet 02/17 completed Not Available Not Available Not Available allopurinol 100 mg tablet active Not Available Not Availabl e Not Available amoxicillin 875 mg-potassium clavulanate 125 mg tablet 02/17 completed Not Available Not Available Not Available fenofibrate nanocrystalliz ed 145 mg tablet active Not Available Not Available Not Available Symbicort 160 mcg-4.5 mcg/actuation HFA aerosol inhaler active Not Available Not Available Not Available BD PosiFlush Normal Saline 0.9 % injection syringe FOR FLUSH 10 ML S DAILY active Not Available Not Available No t Available Vitals Date Recorded Body height Body mass index (BMI) Body weight Heart rate Systolic blood pressure Diastolic blood pressure Provider Name and Address Organization Details Last Updated DateTime 4 182.88 cm 20.9 kg/m2 24106.9 4 g 80 /min 121 mm[Hg] 84 mm[Hg] Yessenia Cisneros [facility] 4 12:00:05 Date Recorded Body mass index (BMI) Heart rate Heart rate Body height Respiratory rate Body mass index (BMI) Body height Body weight Body weight Respiratory rate Body temperature Body temperature Oxygen saturation Oxygen saturation in Arterial blood by Pulse oximetry Oxygen saturation Oxygen saturation in Arterial blood by Pulse oximetry Systolic blood pressure Diastolic blood pressure Systolic blood pressure Diastolic blood pressure Provider Name and Address Organization Details Last Updated DateTime 4 20.07 kg/m2 83 /min 83 /min 182.88 cm 16 /min 20.07 kg/m2 182.88 cm 89206.6 7076 g 67260.6 7076 g 16 /min 98 [degF] 98 [degF] 98 % 98 % 98 % 98 % 122 mm[Hg] 87 mm[Hg] 122 mm[Hg] 87 mm[Hg] Not Available [facility] 4 05:28:32 Social History None recorded. Functional Status None recorded. Mental Status None recorded. Family History Nothing Reported. Medical History No medical history recorded. Past Encounters Encounter ID Performer Location Encounter Start Date Encounter Closed Date Diagnosis/Indication Diagnosis SNOMED-CT Code Diagnosis ICD10 Code Diagnosis Note [id number] Crissy Powers MD [address] ([place]) [address] [place] [address] 02/18/2024 11:09:42 02/18/2024 13:00:08 Diverticulitis of colon with perforation 10204817 K57.20 [id number] Crissy Powers MD [facility] ([facility]) [address] [place] [address], [address] [place] [address] 04/03/2024 09:47:22 04/10/2024 08:38:49 [id number] Rober Caban MD [facility] ASC GI Anesthesi a [address] [place] [address] 04/03/2024 09:47:20 05/29/2024 04:02:38 Health Concerns Section Related Observation LastModified by Organization Detai ls LastModified Time None Recorded Concern Status LastModified by Organization Details LastModified Time None Recorded Advance Directives Directive None Recorded Payers Encounter Date Sequence Insurance Name Policy Number Policy Craig Covered Member ID Craig Member ID Guarantor Name 02/18/2024 1 [facility] ON OR AFTER 05/18/21 (MEDICAID REPLACEMENT - HMO) Álvaro Byrne [id number] Álvaro Byrne 04/03/2024 1 [facility] ON OR AFTER 05/18/21 (MEDICAID REPLACEMENT - HMO) Álvaro Byrne [id number] Álvaro Byrne 04/03/2024 1 [facility] ON OR AFTER 05/18/21 (MEDICAID REPLACEMENT - HMO) Álvaro Byrne [id number] Álvaro Byrne Notes Date Note Type Note Provider Name and Address Organization Details Recorded Time 02/18/2024 text/html Álvaro is here f or a hospital follow up. He was recently hospitalized at [facility] for perforated diverticulitis. He stated his only issue today is with the IR drain. He stated he called them Saturday because he was having issues with low drain output. He was instructed to only flush it with half the amount of saline. Yesterday he could not flush it at all, but he has an appointment to see them today after his appointment with us. His only discomfort is with the drain. He denies any other abdominal pain. He states he is having bowel movements BID. He denies any nausea or vomiting. He states his appetite is fine. He took his last dose of the antibiotic, Moxifloxacin, yesterday. He reports he has colonoscopies every 3 years, with his last one being done at [facility]. He cannot remember exactly when it was done or who performed it. He denies any family history of colon/rectal cancer or colon polyps. Note he states he is currently smoking a little less than a pack a day of cigarettes .History of present illness documented by nursing staff, verified and amended as necessary by the Attending Provider who electronically signs this note. Crissy Powers MD [address] [place] [address], [phone], [facility] 02/18/2024 15:24:09 04/03/2024 text/html [facility] OP HPIRep orted bypatient.Pre-Procedure Diagnosis:Recent diverticulitis with perforation Date of Procedure:04/03/2024 Proposed Procedure/Surgery:Colon oscopy, with possible biopsy, and or polypectomy Physician Performing the Procedure:Dr. Crissy Powers Proposed Anesthetic:IV Conscious Sedation Chief Complaint:Hospitalizati on in January for diverticulitis with perforation. Treated with antiobiotics and IR drain placement. Current Medication and dosages:See chart Allergies:See chart Crissy Powers MD [address] [place] [address], [phone], [facility] 04/03/2024 11:46:30 04/03/2024 text/html [facility] PRE-ANEST HETIC EVALUATIONReported bypatient.Reason for Visit:PROPOSED PROCEDURE: Colonoscopy; SURGEON: Solomon Review of Systems General:Exercise tolerance moderate; Denies SOB, MONACO, PND; Denies chest pain or chest tightness Cardiac:Denies coronary disease; Hyperlipidemia Pulmonary:Mild COPD ,stable ; Current every day smoker; Smoking Hx, 1 ppd 44 years Prior Anesthetic Complication:no history of anesthesia complications Family Anesthetic Hx:no history of anesthesia complications Physical Exam: AirwayMP II TeethMissing teeth; Poor dentition NeckFull range of motion CardiovascularRegular rate and rhythm RespiratoryDimished breath sounds bilaterally, but clear GastrointestinalNPO status >6 hrs solids, >2 hrs clear liquids Vital Signs:Vital signs reviewed. Please refer to nursing preop note for values Assessment:ASA PS: II Plan:MAC Discussion:I have discussed with the patient the anesthetic plan, alternatives, pertinent risks, and complications; including but not limited to PONV, dental injury, sore throat, RI, stroke, etc. All questions were answered. Patient/patient's guardian verbalize(s) understanding and agree(s) to proceed. Rober Caban MD [address] [place] [address], [phone], [facility] 04/03/2024 10:56:34
[2025-01-30 07:30] VITALS: BP 125/95; PULSE 110; RESP 20; TEMP 36.8; O2SAT 95
--- NOTE | 2025-01-30 07:46 | ED_ITS ---
HPI - Animal Bite General Chief Complaint: Animal Bite Stated Complaint: dog bite Time Seen by Provider: 01/30/25 07:31 History of Present Illness HPI narrative: Patient reports that the was the victim of an intention dog attack. Was attacked by a single dog. Demi mix. At approximately 0700 today's date. Patient reports sustained injuries to his left cheek, left elbow, left hand, left flank, and left leg and thigh. No loc in the event. patient has been the victim of similar recent animal attack and has had a tetanus shot within the last 12 months. Denies any chest pain or sob. Related Data Home Medications ?Medication ?Instructions ?Recorded ?Confirmed ?Last Taken ?Type allopurinol 100 mg tablet 1 tablet PO DAILY 04/18/22 02/02/24 Unknown History atorvastatin 40 mg tablet 40 tablet PO DAILY 04/18/22 02/02/24 Unknown History fenofibrate nanocrystallized 145 1 tablet PO DAILY 04/18/22 02/02/24 Unknown History mg tablet losartan 50 mg tablet 1 tablet PO DAILY 04/18/22 02/02/24 Unknown History budesonide-formoterol HFA 160 2 puff inhalation BID 08/06/22 02/02/24 Unknown History mcg-4.5 mcg/actuation aerosol inhaler (Symbicort) Allergies Allergy/AdvReac Type Severity Reaction Status Date / Time lisinopril Allergy Swelling Verified 01/30/25 08:34 PMFSH Past Medical History Medical History Cellulitis of face Dental caries Social History Social History Smoking packs per day: 1 Smoking cigarettes per day: 20.0 Years smoked: 42 Smoking pack-years: 42.00 Smoking status: Current every day smoker Tobacco type: cigarettes Alcohol intake: current Alcohol use details: on occasion Substance use: current Substance use type: marijuana Living arrangements: with family Spiritual care concerns: No Exam Narrative: GEN: Awake, alert, and appropriate to situation. Well appearing, well nourished, nontoxic, NAD. HEENT: No rhinorrhea noted, mucous membranes moist. No scleral icterus or conjunctival injection. CV: Normal rate, regular rhythm, S1S2 no M/G/R. 2+ distal pulses all extremities. No peripheral edema noted. PULM: Non-labored respiration. Clear to auscultation bilaterally. No wheezes, rales, rhonchi. GI: Abdomen soft, non -tender to palpation. No rigidity, distention or guarding.? NEURO: Normal speech. No lateralizing or focal deficits noted. Left hand: General: No obvious swelling or deformity of fingers, hand or wrist. Has 2 hemostatic puncture wounds on the dorsum of the hand just above the thumb. Palpation: No tenderness on exam over metacarpals. No pain at anatomic snuff box. Non tenderness over radial styloid. Radial and ulnar pulses intact.? Active and Passive ROM: Full ROM in both hands and wrists.? 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 Wrist flexion and extension 5/5.? Inspection: Ecchymosis and 2 cm skin tear noted over the lateral epicondyle. No injuries over the antecubital fossa or the olecranon bursa. No effusion noted. No deformity noted.?? Palpation: No tenderness over the medial or lateral epicondyles nor over the antecubital fossa or the olecranon bursa. No pain or tenderness over the triceps tendon.? Active and Passive ROM: Extension intact to 180?, flexion intact to approximately 150?. Able to supinate 90? and pronate approximately 180?.? Strength: Intact throughout.? 1cm superficial abrasion on L cheeck bel ow eye. No involvement of eyes. 2 cm superficial laceration on L flank. 2 cm eccymosis on superior, anterior L t high. MDM - Animal Bite MDM Narrative Medical decision making narrative: Patient was placed in Room #:?Six Independent Historian: the patient External Source Review: patient medical records Differential diagnosis includes but not limited to:? animal attack, of multiple puncture wounds, no evidence of injury to internal organs or deep muscular skeletalstructures on exam Medications were Reviewed: lisinopril allergy Independently Interpreted by me: vital signs Medications, treatment, ED course: copious irrigation of all puncture wounds. No closures due to the nature of the wounds I see animal bite and skin tear. Dressed with petroleum jelly in bandages. Started on Augmentin. Social situation impacting patients care: The offending animal has been picked up by animal Control and the person who owns the animal is reportedly been taken into custody by police. The patient states that he does have a safe place to go home. Shared decision making:? Patient agrees to follow-up with his primary care doctor for wound check in the next 5 days Accepting physician: Jocelin SCHROEDER DIAGNOSIS: animal bite DISPOSITION: home with self-care CONDITION AT DISCHARGE:? stable Discharge Plan Discharge Clinical Impression: Bite by animal Patient Disposition: Home, Self-Care Condition: Stable Instructions: Antibiotic Form, Animal Bite (ED) Additional Instructions: He have several puncture wounds from an animal bite. This puts you at higher risk of having an infection. We are starting you on an antibiotic called Augmentin to help prevent this infection. Keep a close eye on the wounds and watch for any redness, swelling, heat. Return to the emergency department or call 911 if? you develop high fever, shaking chills, or are unable to tolerate food or? fluids, have decreased urination, or are too sick to get out of bed. Please call your doctor 1st thing on the morning of 02/01/2025 to schedule appointment to follow up to check on wound healing. Ideally this appointment will be in the next 5-7 days. Patient Language: Tanzanian Prescriptions: New amoxicillin-pot clavulanate 875-125 mg tablet 1 tablet PO Q12H Qty: 14 0RF No Action amoxicillin-pot clavulanate 875-125 mg tablet 1 tablet PO BID 10 Days Qty: 20 0RF losartan 50 mg tablet 1 tablet PO DAILY atorvastatin 40 mg tablet 40 tablet PO DAILY allopurinol 100 mg tablet 1 tablet PO DAILY fenofibrate nanocrystallized 145 mg tablet 1 tablet PO DAILY budesonide-formoterol [Symbicort] 160-4.5 mcg/actuation HFA aerosol inhaler 2 puff INHALATION BID Follow-up/Referrals: UNKNOWN,DOCTOR [Non-Staff] - Time of Disposition: 08:14
--- OUTSIDE RECORDS SUMMARY | 2025-01-30 08:37 | XMS_ITS | Clinical Summary ---
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
[2025-01-30 08:45] VITALS: BP 122/88; PULSE 98; RESP 18; O2SAT 95
== END 2025-01-30 08:45 | disposition home or self-care (01) ==
LOC: CHSED 08:35
PROVIDERS: Emergency Provider Family Medicine; PCP Physician Assistant
DX: S00.81XA Abrasion of other part of head, initial encounter (principal); S70.12XA Contusion of left thigh, initial encounter; S51.052A Open bite, left elbow, initial encounter; S61.452A Open bite of left hand, initial encounter; S31.119A Laceration without foreign body of abdominal wall, unspecified quadrant without penetration into peritoneal cavity, initial encounter; F17.210 Nicotine dependence, cigarettes, uncomplicated; W54.0XXA Bitten by dog, initial encounter
CPT/HCPCS: 99283; A9270

== ENCOUNTER 2025-11-12 22:38 | Emergency (ER) | payer OTHER, SELFPAY ==
[2025-11-12 22:45] VITALS: BP 108/79; PULSE 102; RESP 18; TEMP 37; O2SAT 97
--- OUTSIDE RECORDS SUMMARY | 2025-11-12 23:27 | XMS_ITS | Clinical Summary ---
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 Gender Identity Not on file Sexual Orientation Not on file Plan of Treatment Health Maintenance Due Date Last Done Comments Colon Cancer Screening-Colonoscopy 1969 Depression Screening 1969 Hepatitis C Screening 1969 Prostate Cancer Screening-PSA 1969 Hepatitis B Screening 1987 Regular Well Visit/Exam 18-64 1987 Zoster Vaccine (1 of 2) 2019 Influenza Vaccine (#1) 2025 DTaP/Tdap/Td Vaccine (2 - Td or Tdap) 07/15/2034 07/15/2024, 11/18/2010 Pneumococcal vaccine <65 Aged Out No longer eligible based on patient's age to complete this topic Insurance [employer] Care Teams Tunnel Form Placing Supervisor Relationship Specialty Start Date End Date Guanako Arriaza MD [address] [place] [id number] PCP - General Family Medicine 07/08/25
--- OUTSIDE RECORDS SUMMARY | 2025-11-12 23:28 | XMS_ITS | Data Portability ---
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 He was found to [...] surgery given the risk for perioperative complications. [email or web address] Not available 02/18/2024 15:23:14 04/03/2024 04/03/2024 The history and physical has been reviewed, the patient has been examined and no change has occurred in the patient's condition since the history and physical was completed. [email or web address] Not available 04/03/2024 11:46:27 Plan of Treatment [...] Anaer obic Cultu re [] ACCES NUBIA: 751 SOURC E: Other BODY SITE: Abdom [...] Disea ses 2009. Eulalia justice et.al .) CO ELIMI NARY REPOR TS Preli minar y Repor t [] Verif ied Date/ Time: 2023 15:45 CDT Cultu re in progr ess Not Available Id Only - [facility] [address], [place], [address], 02/12/2024 14:39:20 02/06/20 24 02/11/2024 C ANAER [...] Anaer obic Cultu re [] ACCES NUBIA: 751 SOURC E: Other BODY SITE: Abdom [...] Disea ses 2009. Eulalia justice et.al .) CO ELIMI NARY REPOR TS Preli minar y Repor t [] Verif ied Date/ Time: 2023 15:45 CDT Cultu re in progr ess Not Available Id Only - [facility] [address] , [place], [address], 02/11/2024 15:33:39 02/06/20 24 02/06/2024 cultu re, [...] re in progr ess Not Available Test [facility] [address] [place] [address], [address], 11/04/2024 07:28:30 04/03/20 24 04/09/2024 surgi mesha patho logy study tissue exam biopsy [facility] [address] [place] [address] Ph. [phone] Doc Kimble MD, PhD, Medic al Dire tor MARIO Wilson JR., CRISSY Jensen MD Patie nt: KEN CALDERÓN e ID: [id number] Repor t Statu s: Final :1 1969 Case #: [id number] Age: 53 Y Gende r: M Date Colle cted: 04/03 MRN # : [id number] Date Recei jeffery: 04/03 Repor christie [...] e that is 0.3 cm in [facility] nubia. The speci men is entir zaire submi tted for histo logic study in one casse tte. CLINI MES[facility] INFOR MATIO N: Histo ry of diver ticul osis of colon with perfo ratio n. Not Available [facility] - [facility] [address] [place] [address], [address], 04/09/2024 13:29:55 Result Notes None recorded. Problems Name Problem SNOMED Code Status Onset Date Resolution Date Notes Provider Name and Address Organization Details Recorded Time Diverticulitis of colon with perforation 85671420 Active 2023 Crissy Maria MD [address] [place] [address], [phone] [place] [address] 4 15:23:37 Problem Notes None recorded. Procedures Surgical History Date Name Laterality Status Provider Name and Address Organization Details Recorded Time colonoscopy completed Yessenia Amelia [facility] 04/15/2024 12:14:19 Imaging Results None recorded. Procedure Notes None recorded. Medical Equipment None Reported. Allergies Allergen ID Allergen Name Allergen Category Reaction Reaction Severity Criticality Documentation Date Start Date Code Code System Note Provider Name and Address Organization Details Recorded Time 2276845 enalapril Not available other severe Not available 02/18/2024 3827 RxNorm michael aragon ing Yessenia Amelia [facility] 4 11:54:25 Medications Name Sig Start Date Stop Date [...] index (BMI) Body weight Heart rate Systolic And Diastolic Provider Name and Address Organization Details Last Updated DateTime 02/18/2024 182.88 cm 20.9 kg/m2 66077.94 g 80 /min 121/84 mm[Hg] Yessenia Cisneros [facility] 02/18/2024 12:00:05 Date Recorded Body mass index (BMI) Heart rate Heart rate Body height Respiratory rate Body mass index (BMI) Body height Body weight Body weight Respiratory rate Body temperature Body temperature Provider Name and Address Organization Details Last Updated DateTime 4 20.07 kg/m2 83 /min 83 /min 182.88 cm 16 /min 20.07 kg/m2 182.88 cm 51529.6 7076 g 64788.6 7076 g 16 /min 98 [degF] 98 [degF] Not Available [facility] 4 18:31:02 Date Recorded Oxygen saturation Oxygen saturation Systolic And Diastolic Systolic And Diastolic Provider Name and Address Organization Details Last Updated DateTime 04/03/2024 98 % 98 % 122/87 mm[Hg] 122/87 mm[Hg] Not Available [facility] 4 05:28:32 Social History None recorded. Functional Status None recorded. Mental Status None recorded. Family History Nothing Reported. Medical History No medical history recorded. Past Encounters Encounter ID Performer Location Encounter Start Date Encounter Closed Date Diagnosis/Indication Diagnosis SNOMED-CT Code Diagnosis ICD10 Code Diagnosis IMO Codes Diagnosis Note [id number] Crissy Maria MD [address] [place] ([place]) [address] [place] [address] 02/18/2024 11:09:42 02/18/2024 13:00:08 Diverticulitis of colon with perforation 96676904 K57.20 [id number] Crissy Maria MD [facility] [place] ([place]) [address] [place] [address], [address] [place] [address] 04/03/2024 09:47:22 04/10/2024 08:38:49 [id number] Rober Caban MD [facility] GI Anesthesi a S [address] [place] [address] 04/03/2024 09:47:20 05/29/2024 04:02:38 Health Concerns Section Related Observation LastModified by Organization Detai ls LastModified Time None Recorded Concern Status LastModified by Organization Details LastModified Time None Recorded Advance Directives Directive None Recorded Payers Insurance Date Sequence Insurance Name Policy Number Policy Craig Covered Member ID Craig Member ID Guarantor Name 04/22/2024 1 [facility] ON OR AFTER 05/18/21 (MEDICAID REPLACEMENT - HMO) Álvaro Byrne [id number] Álvaro Byrne Notes Date Note Type Note Provider Name and Address Organization Details Recorded Time 02/18/2024 text/html Álvaro is here for a hospital follow up. He was recently hospitalized at [facility] for perforated diverticulitis. He stated his only [...] with his last one being done at [facility]. He cannot remember exactly when it was done or who performed it. He denies any family history of colon/rectal cancer or colon polyps. Note he states he is currently smoking a little less than a pack a day of cigarettes.History of present illness documented by nursing staff, verified and amended as necessary by the Attending Provider who electronically signs this note. Crissy Maria MD [address] [place] [address], [phone], [facility] 02/18/2024 15:24:09 04/03/2024 text/html [facility] OP HPIRep orted by PatientOutpatient History and PhysicalFor proposed anesthetic, patient reportsiv conscious sedation. For pre-procedure diagnosis, (recent diverticulitis with perforation). For date of procedure, (04/03/2024). For proposed procedure/surgery, (colonoscopy, with possible biopsy, and or polypectomy). For physician performing the procedure, (dr. crissy maria).HistoryFor chief complaint, (hospitalization in january for diverticulitis with perforation. treated with antiobiotics and ir drain placement.). For current medication and dosages, (see chart). For allergies, (see chart). Crissy Maria MD [facility], [address], [facility] 04/03/2024 11:46:30 04/03/2024 text/html [facility] PRE-ANEST HETIC EVALUATIONReported by PatientReason for VisitFor reason for visit, patient reportsproposed procedure: colonoscopyandsurgeon: erma.Review of SystemsFor general, patient reportsexercise tolerance moderate,denies sob, burt, pnd, anddenies chest pain or chest tightness. For cardiac, patient reportshyperlipidemia. For pulmonary, patient reportsmild copd ,stable __ __,current every day smoker, andsmoking hx, 1 ppd 44 years.PSH-Complication/ FM HXFor prior anesthetic complication, patient reportsno history of anesthesia complications. For family anesthetic hx, patient reportsno history of anesthesia complications.Physical ExamFor physical exam: airway, patient reportsmp ii. For teeth, patient reportsmissing teethandpoor dentition __. For neck, patient reportsfull range of motion. For cardiovascular, patient reportsregular rate and rhythm. For respiratory, patient reportsdimished breath sounds bilaterally, but clear. For gastrointestinal, patient reportsnpo status >6 hrs solids, >2 hrs clear liquids. For vital signs, patient reportsvital signs reviewed. please refer to nursing preop note for values.Assessment and PlanFor assessment, patient reportsasa ps: ii. For plan, patient reportsmac.DiscussionFo r discussion, patient reportsi have discussed with the patient the anesthetic plan, alternatives, pertinent risks, and complications; including but not limited to ponv, dental injury, sore throat, mi, stroke, etc. all questions were answered. __ verbalize(s) understanding and agree(s) to proceed.. Rober Caban MD [address] [facility], [place], [address], [facility] 04/03/2024 10:56:34
--- NOTE | 2025-11-13 00:19 | ED_ITS ---
HPI - Male Genitourinary General Chief complaint: Unspecified Stated complaint: hemorrhoids Source: patient and family Mode of arrival: ambulatory Limitations: no limitations History of Present Illness HPI Narrative: Patient is a 55-year-old male with hemorrhoids. Patient has been having hemorrhoids for many years. Normally he takes a bowel movement in the hemorrhoids return back to the internal area. This time he had hemorrhoids and they stuck outside. Patient is a moderate alcohol drinker. MD Complaint: other (Rectal pain) Onset (ago): day(s) (One) Duration: constant Location: abdomen (Rectum) Radiation: abdomen (Rectum) Severity: moderate Severity scale (1-10): 6 Quality: sharp Relieving factors: movement Exacerbating factors: bowel movement Context: other (Patient's primary doctor knows about the hemorrhoids and has referred out for surgery/GI 2 do a colonoscopy follow-up as well as hemorrhoid repair; patient has declined to repeat the colonoscopy and therefore they have not done a hemorrhoid repair as well) Associated symptoms: Reports denies other symptoms Related Data Sexually active: No Home Medications ?Medication ?Instructions ?Recorded ?Confirmed ?Last Taken ?Type allopurinol 100 mg tablet 1 tablet PO DAILY 04/18/22 0 02/02/24 Unknown History atorvastatin 40 mg tablet 40 tablet PO DAILY 04/18/22 02/02/24 Unknown History fenofibrate nanocrystallized 145 1 tablet PO DAILY 12/0902/02/24 Unknown History mg tablet losartan 50 mg tablet 1 tablet PO DAILY 04/18/22 0 02/02/24 Unknown History budesonide-formoterol HFA 160 2 puff inhalation BID 02/02/24 Unknown History mcg-4.5 mcg/actuation aerosol inhaler (Symbicort) Allergies Allergy/AdvReac Type Severity Reaction Status Date / Time lisinopril Allergy Swelling Verified 11/13/25 00:24 Review of Systems Review of Systems: All systems reviewed & are unremarkable except as noted in HPI and below Constitutional: Constitutional: Reports no additional constitutional complaints Eyes: Eyes: Reports no additional eye complaints ENT: Reports system reviewed and no additional complaints, except as documented Cardiovascular: Cardiovascular: Reports no additional cardiovascular complaints Respiratory: Respiratory: Reports no additional respiratory complaints Gastrointestinal: Gastrointestinal: Reports no additional gastrointestinal complaints Genitourinary: Genitourinary: Reports no additional male genitourinary complaints Musculoskeletal: Musculoskeletal: Reports no additional musculoskeletal complaints Integumentary/Breasts: Skin/Breast: Reports system reviewed and no additional complaints, except as docu Neurologic: Reports system reviewed and no additional complaints, except as documented Psychiatric: Psychiatric: Reports no additional psychiatric complaints Endocrine: Endocrine: Reports no additional endocrine complaints Hematologic/Lymphatic: Hematologic/Lymphatic: Reports no additional hematologic/lymphatic complaints Allergic/Immunologic: Allergic/Immunologic: Reports no additional allergic/immunologic complaints [facility] Past Medical History Medical History Cellulitis of face Dental caries Social History Social History Smoking packs per day: 1 Smoking cigarettes per day: 20.0 Years smoked: 42 Smoking pack-years: 42.00 Smoking status: Current every day smoker Tobacco type: cigarettes Alcohol intake: current Alcohol use details: on occasion Substance use: current Substance use type: marijuana Living arrangements: with family Spiritual care concerns: No Exam Const: General: healthy appearing Nutritional Appearance: well nourished Limitations: no limitations HENMT: Head: normal to inspection Ears: TM's normal bilaterally Face /Nose/Sinus: Normal external nose present Eyes: Conjunctivae: conjunctivae normal Pupils: Equal, round and reactive pupils present EOM: EOMs intact bilaterally Neck: Neck: normal visual inspection Chest: Chest palpation & inspection: normal inspection of the chest Resp: Effort & Inspection: normal respiratory effort and not labored Auscultation: clear to auscultation bilaterally and no crackles Cardio: Rate: regular rate and not bradycardic Rhythm: regular rhythm and regular rhythm Heart sounds: no murmurs GI: Inspection: non-distended GI Palp: Yes Soft to palpation and No Tenderness to palpation present (GI) Auscultation: normal bowel sounds : General: Yes bladder normal to palpation Male General Exam: Yes normal external exam Other: Rectum has for fairly large thrombosed hemorrhoids from the internal area was stuck externally; no active bleeding; exquisite tenderness Back/Spine/Pelvis: Back: no CVA tenderness Skin: General skin exam: normal color Rashes: no rashes Wounds: no wounds Neuro: General: patient oriented x3, moves all extremities and no meningeal signs Cranial nerves: Yes CN's II-XII intact bilaterally Speech: normal speech Gait exam (Neuro): Normal gait present Extrem: General: normal to inspection, no clubbing, cyanosis or edema and no pedal edema Psych: Mental Status: mental status grossly normal Affect: normal affect Attitude: cooperative Course Vital Signs Vital signs: Vital Signs Temperature 37.0 C 11/12/25 22:45 Pulse Rate 102 H 11/12/25 22:45 Respiratory Rate 18 11/12/25 22:45 Blood Pressure 108/79 11/12/25 22:45 Pulse Oximetry 97 11/12/25 22:45 Oxygen Delivery Room Air 11/12/25 22:45 Temperature 37.0 C 11/12/25 22:45 Pulse Rate 102 H 11/12/25 22:45 Respiratory Rate 18 11/12/25 22:45 Blood Pressure 108/79 11/12/25 22:45 Pulse Oximetry 97 11/12/25 22:45 Oxygen Delivery Room Air 11/12/25 22:45 MDM MDM Narrative Medical decision making narrative: Patient is a 55-year-old male with thrombosed hemorrhoids recurrent and here for evaluation and suggestions. Patient will need to see the GI/surgeon specialist to have this repaired. I reviewed we do not tackled his problem in the emergency room per se. He is to continue softening his stool with multiple means and use topical hemorrhoid cream. [place] given in small quantities to assist with pain as he can not sleep due to the pain. He understands that the Selk[place] may thickened up his stool and cause constipation which is the opposite of our main goal but pain control is required at this time. Benefit greater than risk at this current time to use Selkirk. Differential Diagnosis Differential Diagnosis: Hemorrhoids, thrombosed hemorrhoids Discharge Plan Discharge Clinical Impression: Hemorrhoid prolapse Patient Disposition: Home Condition: Stable Instructions: Hemorrhoids (ED) Additional Instructions: Please call the surgeon/GI specialist 1st thing in the morning to get an appointment as soon as possible. You will need repair of these hemorrhoids. Patient Language: Monegasque Prescriptions: New hydrocodone-acetaminophen 5-325 mg tablet 1 tablet PO Q8H PRN (Reason: pain) Qty: 20 0RF Rx Instructions: 1-2 tabs per dose No Action amoxicillin-pot clavulanate 875-125 mg tablet 1 tablet PO Q12H Qty: 14 0RF losartan 50 mg tablet 1 tablet PO DAILY atorvastatin 40 mg tablet 40 tablet PO DAILY allopurinol 100 mg tablet 1 tablet PO DAILY fenofibrate nanocrystallized 145 mg tablet 1 tablet PO DAILY budesonide-formoterol [Symbicort] 160-4.5 mcg/actuation HFA aerosol inhaler 2 puff INHALATION BID Follow-up/Referrals: Rashi,BLAISE Montgomery [Primary Care Provider] Time of Disposition: 00:18
--- NOTE | 2025-11-13 00:19 | ED.GENADULT ---
HPI - General Adult General Chief complaint: Unspecified Stated complaint: hemorrhoids Related Data Home Medications ?Medication ?Instructions ?Recorded ?Confirmed ?Last Taken ?Type allopurinol 100 mg tablet 1 tablet PO DAILY 04/18/22 02/02/24 Unknown History atorvastatin 40 mg tablet 40 tablet PO DAILY 04/18/22 02/02/24 Unknown History fenofibrate nanocrystallized 145 1 tablet PO DAILY 04/18/22 02/02/24 Unknown History mg tablet losartan 50 mg tablet 1 tablet PO DAILY 04/18/22 02/02/24 Unknown History budesonide-formoterol HFA 160 2 puff inhalation BID 08/06/22 02/02/24 Unknown History mcg-4.5 mcg/actuation aerosol inhaler (Symbicort) Allergies Allergy/AdvReac Type Severity Reaction Status Date / Time lisinopril Allergy Swelling Verified 01/30/25 08:34 [facility] Past Medical History Medical History Cellulitis of face Dental caries Social History Social History Smoking packs per day: 1 Smoking cigarettes per day: 20.0 Years smoked: 42 Smoking pack-years: 42.00 Smoking status: Current every day smoker Tobacco type: cigarettes Alcohol intake: current Alcohol use details: on occasion Substance use: current Substance use type: marijuana Living arrangements: with family Spiritual care concerns: No Course Vital Signs Vital signs: Vital Signs Temperature 37.0 C 11/12/25 22:45 Pulse Rate 102 H 11/12/25 22:45 Respiratory Rate 18 11/12/25 22:45 Blood Pressure 108/79 11/12/25 22:45 Pulse Oximetry 97 11/12/25 22:45 Oxygen Delivery Room Air 11/12/25 22:45 Temperature 37.0 C 11/12/25 22:45 Pulse Rate 102 H 11/12/25 22:45 Respiratory Rate 18 11/12/25 22:45 Blood Pressure 108/79 11/12/25 22:45 Pulse Oximetry 97 11/12/25 22:45 Oxygen Delivery Room Air 11/12/25 22:45 MDM Differential Diagnosis Differential Diagnosis: error Discharge Plan Discharge Clinical Impression: Hemorrhoid prolapse Patient Disposition: Home Condition: Stable Instructions: Hemorrhoids (ED) Additional Instructions: Please call the surgeon/GI specialist 1st thing in the morning to get an appointment as soon as possible. You will need repair of these hemorrhoids. Patient Language: Greek Prescriptions: New hydrocodone-acetaminophen 5-325 mg tablet 1 tablet PO Q8H PRN (Reason: pain) Qty: 20 0RF Rx Instructions: 1-2 tabs per dose No Action amoxicillin-pot clavulanate 875-125 mg tablet 1 tablet PO Q12H Qty: 14 0RF losartan 50 mg tablet 1 tablet PO DAILY atorvastatin 40 mg tablet 40 tablet PO DAILY allopurinol 100 mg tablet 1 tablet PO DAILY fenofibrate nanocrystallized 145 mg tablet 1 tablet PO DAILY budesonide-formoterol [Symbicort] 160-4.5 mcg/actuation HFA aerosol inhaler 2 puff INHALATION BID Follow-up/Referrals: Rashi,BLAISE Montgomery [Primary Care Provider] Time of Disposition: 00:18
[2025-11-13] MEDS: HYDROcodone/acetaminophen (*CRX) 10-325 MG TABLET 1 TAB PO (00:33)
== END 2025-11-13 00:38 | disposition home or self-care (01) ==
PROVIDERS: Emergency Provider Emergency Medicine; PCP Physician Assistant
DX: K64.8 Other hemorrhoids (principal); F17.210 Nicotine dependence, cigarettes, uncomplicated
CPT/HCPCS: 99283; A9270

== ENCOUNTER 2025-11-13 12:04 | Observation (INO) | payer OTHER, SELFPAY ==
[2025-11-13 12:32] VITALS: BP 114/75; PULSE 75; RESP 18; TEMP 36.7; O2SAT 97
--- NOTE | 2025-11-13 14:10 | ED_ITS ---
HPI - General Adult General Chief complaint: Unspecified Stated complaint: hemorrhoid Time Seen by Provider: 11/13/25 14:02 History of Present Illness HPI narrative: Patient is a 55-year-old male who presents to the ER with rectal pain. He reports he was seen at [place] emergency department last night for the same complaint. He endorses a history of hemorrhoids but they have never gotten this bad. Usually they are internal but he reports now they are outside of his rectum. He reports he was prescribed narcotics last night but he has been unable to fill the prescription. Patient's medical chart indicates he has a history of high blood pressure, diverticulitis and high cholesterol. He denies any abdominal pain, chest pain, or recent fevers. Related Data Home Medications ?Medication ?Instructions ?Recorded ?Confirmed ?Last Taken ?Type allopurinol 100 mg tablet 1 tablet PO DAILY 04/18/22 0 02/02/24 Unknown History atorvastatin 40 mg tablet 40 tablet PO DAILY 04/18/22 02/02/24 Unknown History fenofibrate nanocrystallized 145 1 tablet PO DAILY 12/0902/02/24 Unknown History mg tablet losartan 50 mg tablet 1 tablet PO DAILY 04/18/22 0 02/02/24 Unknown History budesonide-formoterol HFA 160 2 puff inhalation BID 02/02/24 Unknown History mcg-4.5 mcg/actuation aerosol inhaler (Symbicort) Allergies Allergy/AdvReac Type Severity Reaction Status Date / Time lisinopril Allergy Swelling Verified 11/13/25 14:43 Review of Systems 2 Review of Systems: All systems reviewed & are unremarkable except as noted in HPI and below PMFSH Past Medical History Medical History Cellulitis of face Dental caries Social History Social History Smoking packs per day: 1 Smoking cigarettes per day: 20.0 Years smoked: 42 Smoking pack-years: 42.00 Smoking status: Current every day smoker Tobacco type: cigarettes Alcohol intake: current Alcohol use details: on occasion Substance use: current Substance use type: marijuana Living arrangements: with family Spiritual care concerns: No Exam 2 Narrative: GENERAL: Ill appearing, well-nourished, non-toxic, in no acute distress. HEAD: Normocephalic, atraumatic. NECK: Supple. No adenopathy, no masses. RESPIRATORY: Airway patent, respirations nonlabored. Clear to auscultation bilaterally, no rales, rhonchi, wheezing. CARDIOVASCULAR: Regular rate and rhythm without murmurs, rubs, or gallops. Peripheral pulses 2+ and equal bilaterally. ABDOMINAL: Soft, nontender, nondistended, no hepatosplenomegaly. Normoactive BS. MUSCULOSKELETAL: Moves all extremities. Strength/ROM intact without gross deformities. SKIN: Warm, dry, normal color. No rashes. NEURO: A&O X3. Speech clear. Cranial nerves II-XII intact. No ataxic movements. PSYCHIATRIC: Appropriate mood and affect. Normal interaction. : Rectum has for fairly large thrombosed hemorrhoids from the internal area was stuck externally; no active bleeding but visible blood; exquisite tenderness Course Vital Signs Vital signs: Vital Signs Temperature 36.7 C 11/13/25 12:32 Pulse Rate 75 11/13/25 12:32 Respiratory Rate 18 11/13/25 12:32 Blood Pressure 114/75 11/13/25 12:32 Pulse Oximetry 97 11/13/25 12:32 Oxygen Delivery Room Air 11/13/25 12:32 Temperature 36.7 C 11/13/25 12:32 Pulse Rate 78 11/13/25 14:57 Respiratory Rate 20 11/13/25 14:57 Blood Pressure 132/83 11/13/25 14:57 Pulse Oximetry 92 11/13/25 14:57 Oxygen Delivery Room Air 11/13/25 12:32 [facility] MDM Narrative Medical decision making narrative: Patient is a 55-year-old male who presents to the ER with rectal pain. He reports he was seen at [place] emergency department last night for the same complaint. He endorses a history of hemorrhoids but they have never gotten this bad. Usually they are internal but he reports now they are outside of his rectum. He reports he was prescribed narcotics last night but he has been unable to fill the prescription. Patient's medical chart indicates he has a history of high blood pressure, diverticulitis and high cholesterol. He denies any abdominal pain, chest pain, or recent fevers. Labs Ordered: CBC, CMP, lactic acid, CRP, lactic acid, PTT, INR, UA Imaging Ordered: None necessary Medications Ordered: Dilaudid 0.5 mg IV, 2 L normal saline IV bolus, Zosyn IV Diagnosis: Prolapsed thrombosed hemorrhoid Consults: 1445-spoke with Dr. Berkowitz, who is in agreement with plan to consult patient in the hospital. 1445-spoke with hospitalist, Marley Bermeo, who is in agreement with plan for admission. Patient will be admitted to the med/surg floor. He will be started on Zosyn and provided with Dilaudid IV for pain relief. Differential Diagnosis Differential Diagnosis: Thrombosed hemorrhoid, rectal prolapse, constipation, bleeding hemorrhoid Lab Data MDM Lab Attestation statement: I personally reviewed the patient's lab results. 11/13/25 14:45 11/13/25 14:45 Labs: Lab Results 11/13/25 Range/Units 14:45 WBC Pending RBC Pending Hgb Pending Hct Pending MCV Pending MCH Pending MCHC Pending RDW Pending Plt Count Pending MPV Pending Immature Gran % (Auto) Pending Neut % (Auto) Pending Lymph % (Auto) Pending [place] % (Auto) Pending Eos % (Auto) Pending Baso % (Auto) Pending Lymph # (Auto) Pending [place] # (Auto) Pending Eos # (Auto) Pending Baso # (Auto) Pending Abs Immat Gran (auto) Pending Absolute Neuts (auto) Pending Absolute Nucleated RBC Pending Nucleated RBC % Pending PT Pending INR Pending APTT Pending Sodium Pending Potassium Pending Chloride Pending Carbon Dioxide Pending Anion Gap Pending BUN Pending Creatinine Pending Estim Creat Clear Calc Pending Estimated GFR Pending Glucose Pending Lactic Acid Pending Calcium Pending Total Bilirubin Pending AST Pending ALT Pending Alkaline Phosphatase Pending C-Reactive Protein Pending Total Protein Pending Albumin Pending Ethyl Alcohol Pending Discharge Plan Discharge Clinical Impression: Hemorrhoid prolapse, Pain, rectal Patient Disposition: Still a Patient Condition: Stable Patient Language: Macedonian Prescriptions: No Action amoxicillin-pot clavulanate 875-125 mg tablet 1 tablet PO Q12H Qty: 14 0RF losartan 50 mg tablet 1 tablet PO DAILY atorvastatin 40 mg tablet 40 tablet PO DAILY allopurinol 100 mg tablet 1 tablet PO DAILY fenofibrate nanocrystallized 145 mg tablet 1 tablet PO DAILY hydrocodone-acetaminophen 5-325 mg tablet 1 tablet PO Q8H PRN (Reason: pain) Qty: 20 0RF Rx Instructions: 1-2 tabs per dose budesonide-formoterol [Symbicort] 160-4.5 mcg/actuation HFA aerosol inhaler 2 puff INHALATION BID Follow-up/Referrals: Rashi,BLAISE Montgomery [Primary Care Provider]
--- OUTSIDE RECORDS SUMMARY | 2025-11-13 14:17 | XMS_ITS | Clinical Summary ---
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 Gender Identity Not on file Sexual Orientation [...] Colonoscopy (10 Years) 1969 Annual Physical 1972 Hepatitis C 1987 DTaP, Tdap and Td Vaccines ( 1 - Tdap) 1988 Hepatitis B Vaccines (1 of 3 - 19+ 3-dose series) 1988 Pneumococcal Vaccine: 50+ Ye ars (1 of 2 - PCV) 1988 Zoster Vaccines (1 of 2) 2019 COVID-19 Vaccine (1 - 2024-2 6 season) 2025 Influenza Adult (#1) 2025 Hepatitis A Vaccines Aged Out No long er eligible based on patient's age to complete this topic Meningococcal B Vaccine Aged Out No l onger eligible based on patient's age to complete this topic Meningococcal Vaccine Aged Out No lizette nathalie eligible based on patient's age to complete this topic RSV Immunizations Under 20 Months Aged Out No longer eligible based on patient's age to complete this topic Insurance [employer] Care Teams Door To Door Lead Generation Relationship Specialty Start Date End Date Ulises Markham PA [address] [place] [address] PCP - General 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
--- OUTSIDE RECORDS SUMMARY | 2025-11-13 14:17 | XMS_ITS | Clinical Summary ---
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
[2025-11-13] MEDS: HYDROmorphone HCL INJ (*CRX) 1 MG/ML SYR 0.5 MG IV PUSH (14:42)
[2025-11-13 14:53] LABS: Hematocrit 43.7 % (42.0-52.0); Hemoglobin 15.4 g/dL (14.0-18.0); Immature Granulocyte Percent A 0.7 % (0-0.5); Lymphocytes Absolute Auto 2.07 K/mm3 (0.9-3.2); Mean Corpuscular HGB Conc 35.2 g/dl (32-36); Mean Corpuscular Hemoglobin 34.5 pg (26-34); Mean Corpuscular Volume 98.0 fl (80-100); Nucleated Red Blood Cells Absolute Auto 0.000 K/mm3 (0.0-0.012); Nucleated Red Blood Cells Perc 0.0 % (0.0-0.2); Platelet Count Result 314 k/mm3 (150-375); Red Blood Count 4.46 M/mm3 (4.6-6.20); White Blood Count 9.8 K/mm3 (4.5-10.0)
[2025-11-13] MEDS: SODIUM CHLORIDE 0.9% IV 1,000 ML 999 ML IV CONT ×2 (14:55→14:56)
[2025-11-13] MEDS: PIPERACILLIN/TAZOBACTAM SOD 3.375 GM in SODIUM CHLORIDE 0.9% IV 50 ML 100 ML IVPB ×2 (14:56→21:03)
[2025-11-13 14:57] VITALS: BP 132/83; PULSE 78; RESP 20; O2SAT 92
[2025-11-13 15:05] LABS: INR 1.0; Prothrombin Time 13.6 Seconds (11.1-14.7)
[2025-11-13 15:06] LABS: Partial Thromboplastin Time 27.8 Seconds (22.3-36.8)
[2025-11-13 15:16] LABS: Alanine Aminotransferase 24 U/L (6-50); Albumin Level 3.7 g/dL (3.5-5.1); Alkaline Phosphatase 64 U/L (38-126); Anion Gap 7 mmol/L (4-12); Aspartate Amino Transferase 53 U/L (17-59); Bilirubin,Total 0.9 mg/dL (0.2-1.3); Blood Urea Nitrogen 9 mg/dL (9-20); CRP < 0.5 mg/dL (<1.0); Calcium 8.6 mg/dL (8.4-10.2); Carbon Dioxide 21 mmol/L (22-30); Chloride 110 mmol/L (98-107); Estimated CRCL calculation 77 ml/min; Estimated Glomerular Filt Rate > 60; Glucose 97 mg/dL (65-110); Potassium 3.2 mmol/L (3.4-5.0); Sodium 138 mmol/L (137-145); Total Protein 6.8 g/dL (6.3-8.2)
[2025-11-13] MEDS: SODIUM CHLORIDE 0.9% IV 1,000 ML 125 ML IV CONT (15:52)
[2025-11-13] MEDS: SODIUM CHLORIDE 0.9% IV 100 ML 999 ML IV CONT (15:53)
[2025-11-13 15:55] VITALS: BP 139/82; PULSE 71; RESP 20; O2SAT 95
[2025-11-13 16:30] VITALS: BP 137/86; PULSE 74; RESP 20; TEMP 36.8; O2SAT 93
--- NOTE | 2025-11-13 16:41 | WPCEDHO ---
ED Hand Off Checklist All vitals saved:yes IV Site documented:yes All med administrations documented:yes Triage Note Triage Note Multiple hemorrhoids, stated he 11/13/25 12:32 went to [facility] last night, they gave him pain medication but he has not filled script yet. Patient has over the counter hemorrhoid cream at home but states it does not help. Allergies lisinopril Allergy (Verified 11/13/25 14:43) Swelling Active Medications including assessments/comments Sodium Chloride (Normal Saline Iv) 1,000 mls @ 125 mls/hr IV CONT .Q8H JAKOB Last Admin: 11/13/25 15:52 Dose: 125 mls/hr Documented By: ALFRED Infusion/Titration Document 11/13/25 15:52 [facility] (Rec: 11/13/25 15:52 [facility] [id number]) Intake IV Site Peripheral Access Right Forearm Container Volume 1,000 Waste Amount 0 Dosing Infusion Rate 125 Cumulative Dose Not Applicable Increase/Decrease Started Elapsed Time Elapsed Time ( 0m minutes) Administered/Completed Medications Discontinued Medications Hydromorphone HCl (Hydromorphone Hcl Inj (*Crx) 1 Mg/Ml Syr) 0.5 mg IV PUSH ONCE STA Stop: 11/13/25 14:10 Last Admin: 11/13/25 14:42 Dose: 0.5 mg Documented By: ALFRED Piperacillin Sod/Tazobactam (Sod 3.375 gm/ Sodium Chloride) 50 mls @ 100 mls/hr IVPB ONCE STA Stop: 11/13/25 15:03 Last Infusion: 11/13/25 15:54 Dose: Infused Documented By: Admin: 11/13/25 14:56 Dose: 100 mls/hr Documented By: ALFRED Sodium Chloride (Normal Saline Iv) 1,000 mls @ 999 mls/hr IV CONT .Q1H1M STA Stop: 11/13/25 15:38 Last Infusion: 11/13/25 15:55 Dose: Infused Documented By: Admin: 11/13/25 14:56 Dose: 999 mls/hr Documented By: ALFRED Sodium Chloride (Normal Saline Iv) 1,000 mls @ 999 mls/hr IV CONT .Q1H1M STA Stop: 11/13/25 15:38 Last Infusion: 11/13/25 15:55 Dose: Infused Documented By: Admin: 11/13/25 14:55 Dose: 999 mls/hr Documented By: ALFRED Sodium Chloride (Normal Saline Iv) 100 mls @ 999 mls/hr IV CONT .Q6M STA Stop: 11/13/25 14:43 Last Infusion: 11/13/25 15:55 Dose: Infused Documented By: Admin: 11/13/25 15:53 Dose: 999 mls/hr Documented By: ALFRED Notes 11/13/25 16:40 Nurse Note by Ninfa Babcock Patient is trying to urinate now for RN. Awaiting sample. Initialized on 11/13/25 16:40 - END OF NOTE Interventions/Assessments IV / Saline Lock, Insert Start: 11/13/25 12:04 Freq: Status: Active Protocol: Document 11/13/25 14:48 [facility] (Rec: 11/13/25 14:48 [facility] [id number]) IV Assessment Peripheral Access Right Forearm IV Catheter Access Initiated IV Insertion Date 11/13/25 IV Insertion Time 14:48 Catheter Gauge 18 IV Site Assessment WNL IV Care and WNL Maintenance Last Vital Signs Temperature 98.2 F 11/13/25 16:30 Pulse Rate 74 11/13/25 16:30 Respiratory Rate 20 11/13/25 16:30 Pulse Oximetry 93 11/13/25 16:30 Blood Pressure 137/86 11/13/25 16:30 Blood Pressure Mean 103 11/13/25 16:30 Oxygen Delivery Room Air 11/13/25 12:32 Weight 66.7 kg 11/13/25 12:32 Last Result - Abnormals Only RBC 4.46 M/mm3 (4.6-6.20) L 11/13/25 14:45 MCH 34.5 pg (26-34) H 11/13/25 14:45 Immature Gran % (Auto) 0.7 % (0-0.5) H 11/13/25 14:45 Orange % (Auto) 9.0 % (2.6-8.5) H 11/13/25 14:45 [place] # (Auto) 0.9 K/mm3 (0.1-0.6) H 11/13/25 14:45 Abs Immat Gran (auto) 0.07 K/mm3 (0.00-0.031) H 11/13/25 14:45 Potassium 3.2 mmol/L (3.4-5.0) L 11/13/25 14:45 Chloride 110 mmol/L (98-107) H 11/13/25 14:45 Carbon Dioxide 21 mmol/L (22-30) L 11/13/25 14:45 Most Recent Suicide Severity Rating Suicide Severity Rating NO RISK INDICATED 11/13/25 12:32
[2025-11-13 17:32] VITALS: BMI 19.7
[2025-11-13 17:37] VITALS: BP 136/84; PULSE 76; RESP 16; TEMP 36.4; O2SAT 97
--- NOTE | 2025-11-13 17:43 | ADMGEN ---
This patient, Álvaro Byrne, was admitted to [facility] Surg Room 317-01. Patient/family oriented to hospital policies and general routines including ID bracelet, bed and alarms, visiting hours, pain management, procedures, bathroom and other care routines, personal items, smoking policy, room service/diet, and visiting hours. Information on how to activate the Rapid Response Team has been discussed. Patient/Family are encouraged to report perceived risks to care and to ask questions if they do not understand what they are told or what they should do. Received from ER
--- NOTE | 2025-11-13 18:12 | P.CONS_ITS ---
Assessment and Plan Assessment and plan (1) Pain, rectal: Code(s): K62.89 - Other specified diseases of anus and rectum Status: Acute Assessment and Plan: Patient is having intractable anal pain due to his strangulating grade 4 prolapsing internal hemorrhoids. Admitted to the hospital for IV pain management. (2) Strangulated grade IV hemorrhoid: Code(s): K64.3 - Fourth degree hemorrhoids Status: Acute Assessment and Plan: Patient has grade 4 non reducible strangulating prolapsing internal hemorrhoids. He will need to go to the operating tomorrow morning for evaluation under anesthesia and excisional hemorrhoidectomy. Will make him NPO after midnight. Hydrated IV fluids. His potassium is low at 3.3 and so given some potassium supplementation overnight. Risks, benefits, indications, and expected outcomes were discussed in detail with the patient and/or family. They understand and I have answered all other questions. They wished to proceed with surgery as outlined above. HPI Data of Consult Date/Time: 11/13/25 18:12 Requesting Physician: Srikanth Pyle MD Primary Care Provider: Mal Oleary Consult Narrative Reason for consult: Intractable pain due to grade 4 incarcerated internal hemorrhoids Narrative: Álvaro Byrne is a 55 year old male who has had issues with hemorrhoids for several years. More recently he has had more problems with being of the hemorrhoids especially with bowel movements. Yesterday he went to the [facility] with complaints of pain from his hemorrhoids. He was given narcotic pain medications and instructed to make an appointment with a general surgeon. This morning he woke up in the hemorrhoids were even larger and more painful than the day before. He presented to the emergency room here at [facility] where he was seen and noted to have very large incarcerated and non reducible grade 4 hemorrhoids. He was started on IV antibiotics due to the possibility of necrosis of the hemorrhoids and pelvic sepsis. His white blood cell count was normal. He had a fever tachycardia. He was admitted to the floor and surgical consultation was requested. Review of Systems 2 Review of Systems: The remainder of the review of systems to include constitutional, HEENT, cardiovascular, respiratory, GI, , integumentary, musculoskeletal, endocrine, immunologic, hematologic, psychiatric, and neurologic are all negative except for which is mentioned above in the HPI. [facility] Past Medical History Medical History Cellulitis of face Dental caries Social History Social History Smoking packs per day: 1 Smoking cigarettes per day: 20.0 Years smoked: 46 Smoking pack-years: 46.00 Smoking status: Current every day smoker Tobacco type: cigarettes Alcohol intake: current Drinks per week: 35 Alcohol use details: on occasion Substance use: former Substance use type: marijuana Other substance usage details: smoked pot in the past Lack of Transportation: No Lack of Food: Never True Current Housing: I Have Housing Concerned About Future Housing: No Difficulty Paying Gas/Electric Bills: No Difficulty Paying for Meds: No Currently Unemployed: No Education: High School Diploma/GED Difficulty w/ Childcare or Family Care: No Living arrangements: with family Spiritual care concerns: No Meds Home Medications and Allergies Home Medications ?Medication ?Instructions ?Recorded ?Confirmed ?Type allopurinol 100 mg tablet 1 tablet PO DAILY 04/18/22 1 01/14/25 History atorvastatin 40 mg tablet 40 tablet PO DAILY 04/18/22 11/13/25 History fenofibrate nanocrystallized 145 1 tablet PO DAILY 12/0911/13/25 History mg tablet losartan 50 mg tablet 1 tablet PO DAILY 04/18/22 1 01/14/25 History budesonide-formoterol HFA 160 2 puff inhalation BID 11/13/25 History mcg-4.5 mcg/actuation aerosol inhaler (Symbicort) amoxicillin 875 mg-potassium 1 tablet PO Q12H #14 tabs 01/30/25 Rx clavulanate 125 mg tablet albuterol sulfate 90 mcg/actuation 1 puff inhalation P RN 11/13/25 11/13/25 History aerosol inhaler hydrocodone 5 mg-acetaminophen 325 1 tablet PO Q8H PRN pain #20 tabs 11/13/25 Rx mg tablet Allergies Allergy/AdvReac Type Severity Reaction Status Date / Time lisinopril Allergy Swelling Verified 11/13/25 17:44 Vital Signs Vital Signs - 24 hr 11/13/25 12:32 11/13/25 14:57 11/13/25 15:55 Temperature 36.7 C Pulse Rate 75 78 71 Respiratory Rate 18 20 20 Blood Pressure 114/75 132/83 139/82 Pulse Oximetry 97 92 95 Oxygen Delivery Room Air 11/13/25 16:30 11/13/25 17:37 Temperature 36.8 C 36.4 C L Pulse Rate 74 76 Respiratory Rate 20 16 Blood Pressure 137/86 136/84 Pulse Oximetry 93 97 Oxygen Delivery Exam 2 Const: General: in distress (Patient in mild distress from the pain from his hemorrhoids) HENMT: Ears: TM's normal bilaterally Face/Nose/Sinus: Normal nares present Mouth: Yes moist mucous membranes Eyes: General: appearance normal, both eyes and all related structures S clera: sclerae normal Pupils: Equal, round and reactive pupils present E OM: EOMs intact bilaterally Neck: Neck: supple and no JVD Resp: Effort & Inspection: normal respiratory effort Auscultation: clear to auscultation bilaterally Cardio: Rate: regular rate Rhythm: regular rhythm GI: Other: Abdomen is soft and nondistended. Benign to palpation. Rectal exam reveals grade 4 non reducible incarcerated circumferential prolapsing internal hemorrhoids. One of the areas of hemorrhoid tissue on the left lateral side appears to have some ischemia. There is no active bleeding at this time. No crepitus in the perineum suggest necrotizing soft tissue infection or pelvic sepsis. : Male General Exam: Yes normal external exam Skin: General skin exam: normal color and no rashes or lesions noted Neuro: General: gait normal Speech: normal speech Motor exam (neuro): 5 /5 motor strength present throughout Sensory Exam: normal sensation Extrem: General: normal to inspection Psych: Mental Status: mental status grossly normal Affect: normal affect Results Labs 11/13/25 14:45 11/13/25 14:45 Labs: Short CBC 11/13/25 Range/Units 14:45 WBC 9.8 (4.5-10.0) K/mm3 Hgb 15.4 (14.0-18.0) g/dL Hct 43.7 (42.0-52.0) % Plt Count 314 (150-375) k/mm3 [facility] 11/13/25 14:45 Sodium 138 Potassium 3.2 L Chloride 110 H Carbon Dioxide 21 L BUN 9 Creatinine 0.89 Glucose 97 Calcium 8.6 Liver Function 11/13/25 Range/Units 14:45 Total Bilirubin 0.9 (0.2-1.3) mg/dL AST 53 (17-59) U/L ALT 24 (6-50) U/L Alkaline Phosphatase 64 (38-126) U/L Albumin 3.7 (3.5-5.1) g/dL
[2025-11-13] MEDS: HYDROmorphone HCL INJ (*CRX) 1 MG/ML SYR IV PUSH ×2 (18:40→23:33)
[2025-11-13] MEDS: POTASSIUM CHLORIDE 20 MEQ PACKET (FOR LIQUID) 40 MEQ PO (18:40)
[2025-11-13 21:08] VITALS: BP 131/85; PULSE 77; RESP 17; TEMP 36.6; O2SAT 97
[2025-11-13] MEDS: KCL 20 MEQ/D5/0.9% SOD CHL 1,000 ML 125 ML IV CONT (21:11)
--- NOTE | 2025-11-13 21:20 | PM.IMHP2 ---
H&P: HPI History of Present Illness Date/Time: 11/13/25 1430 Chief Complaint: Hemorrhoids Narrative: 55-year-old male past medical history of hypertension, hyperlipidemia, current smoker presents to the ED on 11/13/2025 with complaints of hemorrhoids. Patient has had internal hemorrhoids for many years but has never had them stay outside of his anus. He states they became stuck externally at about 6:00 p.m. yesterday. He eventually went to the [place] emergency department. Patient was told these would have to be surgically repaired and was directed to call the general surgeon jaret to have them repaired. Patient states this morning he woke up and they were even worse than last night. He is unable to sit or lay on his back. He has been applying [id number] hemorrhoid cream but states it does not provide any relief. He crawled into the back seat of the car while his significant other drove to the ED today. Denies fever, chest pain, shortness of breath. No recent illnesses. Last bowel movement was yesterday. ED course: Initial vital signs 114/75, HR 75, respirations 18, afebrile and 97% on room air. No leukocytosis. Potassium 3.2, chloride 110, carbon dioxide 21. Review of Systems Review of Systems: All systems reviewed & are unremarkable except as noted in HPI and below PMFSH Past Medical History Medical History (Updated 11/13/25 @ 22:07 by Marley Bermeo APRN) Alcohol abuse Hyperlipidemia Hypertension Cellulitis of face Dental caries Social History Social History Smoking packs per day: 1 Smoking cigarettes per day: 20.0 Years smoked: 46 Smoking pack-years: 46.00 Smoking status: Current every day smoker Tobacco type: cigarettes Alcohol intake: current Drinks per week: 35 Alcohol use details: on occasion Substance use: former Substance use type: marijuana Other substance usage details: smoked pot in the past Lack of Transportation: No Lack of Food: Never True Current Housing: I Have Housing Concerned About Future Housing: No Difficulty Paying Gas/Electric Bills: No Difficulty Paying for Meds: No Currently Unemployed: No Education: High School Diploma/GED Difficulty w/ Childcare or Family Care: No Living arrangements: with family Spiritual care concerns: No Meds Home Medications and Allergies Home Medications ?Medication ?Instructions ?Recorded ?Confirmed ?Type allopurinol 100 mg tablet 1 tablet PO DAILY 04/18/22 11/13/25 History atorvastatin 40 mg tablet 40 tablet PO DAILY 04/18/22 11/13/25 History fenofibrate nanocrystallized 145 1 tablet PO DAILY 04/18/22 11/13/25 History mg tablet losartan 50 mg tablet 1 tablet PO DAILY 04/18/22 11/13/25 History budesonide-formoterol HFA 160 2 puff inhalation BID 08/06/22 11/13/25 History mcg-4.5 mcg/actuation aerosol inhaler (Symbicort) amoxicillin 875 mg-potassium 1 tablet PO Q12H #14 tabs 01/30/25 Rx clavulanate 125 mg tablet albuterol sulfate 90 mcg/actuation 1 puff inhalation PRN 11/13/25 11/13/25 History aerosol inhaler hydrocodone 5 mg-acetaminophen 325 1 tablet PO Q8H PRN pain #20 tabs 11/13/25 Rx mg tablet Allergies Allergy/AdvReac Type Severity Reaction Status Date / Time lisinopril Allergy Swelling Verified 11/13/25 17:44 Vital Signs Vital Signs - 24 hr 11/13/25 12:32 11/13/25 14:57 11/13/25 15:55 Temperature 98.0 F Pulse Rate 75 78 71 Respiratory Rate 18 20 20 Blood Pressure 114/75 132/83 139/82 Pulse Oximetry 97 92 95 Oxygen Delivery Room Air 11/13/25 16:30 11/13/25 17:37 11/13/25 21:08 Temperature 98.2 F 97.5 F L 97.8 F Pulse Rate 74 76 77 Respiratory Rate 20 16 17 Blood Pressure 137/86 136/84 131/85 Pulse Oximetry 93 97 97 Oxygen Delivery Exam Narrative: GENERAL: non-toxic appearing, mild distress. HEAD: Normocephalic, atraumatic. EYES: PERRLA. Conjunctivae clear. NOSE: Normal no drainage. THROAT: Pharynx clear, no exudate. NECK: ?Trachea midline. No adenopathy, no masses. RESPIRATORY: Airway patent, respirations nonlabored. CTA. CARDIOVASCULAR: Regular rate and rhythm GASTROINTESTINAL: ?Abdomen is soft and nontender. ?No organomegaly. ?Bowel sounds normal in all quadrants. Grade 4 non reducible incarcerated circumferential prolapsing internal hemorrhoids. Ischemic areas to the left lateral side. Extremely painful. No bleeding. GENITOURINARY: ?Defer MUSCULOSKELETAL: Moves all extremities. No gross deformities. ? SKIN: Warm, dry, normal color. NEURO: A&O X4. Speech clear PSYCHIATRIC: Normal interaction Results Labs Labs: Short CBC 11/13/25 Range/Units 14:45 WBC 9.8 (4.5-10.0) K/mm3 Hgb 15.4 (14.0-18.0) g/dL Hct 43.7 (42.0-52.0) % Plt Count 314 (150-375) k/mm3 BMP 11/13/25 14:45 Sodium 138 Potassium 3.2 L Chloride 110 H Carbon Dioxide 21 L BUN 9 Creatinine 0.89 Glucose 97 Calcium 8.6 Liver Function 11/13/25 Range/Units 14:45 Total Bilirubin 0.9 (0.2-1.3) mg/dL AST 53 (17-59) U/L ALT 24 (6-50) U/L Alkaline Phosphatase 64 (38-126) U/L Albumin 3.7 (3.5-5.1) g/dL Quality VTE Prophylaxis VTE prophylaxis: mechanical ordered Assessment and Plan Assessment and plan (1) Strangulated grade IV hemorrhoid: Code(s): K64.3 - Fourth degree hemorrhoids Status: Acute Assessment and Plan: Grade 4 non reducible incarcerated circumferential prolapsing internal hemorrhoids. Ischemic areas to the left lateral side. Extremely painful. No bleeding. Incarcerated since 11/12. - General surgery consult; plan for excisional hemorrhoidectomy on 11/14 - NPO at midnight - Pain control with hydromorphone - Zosyn (2) Hypokalemia: Code(s): E87.6 - Hypokalemia Status: Acute Assessment and Plan: Potassium 3.2 - 40 mEq p.o. once - D5 NS with 20 mEq potassium at 125 (3) Hypertension: Qualifiers: Hypertension type: primary hypertension Qualified Code(s): I10 - Essential (primary) hypertension Code(s): I10 - Essential (primary) hypertension Status: Chronic Assessment and Plan: Continue losartan (4) Hyperlipidemia: Qualifiers: Hyperlipidemia type: unspecified Qualified Code(s): E78.5 - Hyperlipidemia, unspecified Code(s): E78.5 - Hyperlipidemia, unspecified Status: Chronic Assessment and Plan: Continue atorvastatin, Tricor (5) Alcohol abuse: Code(s): F10.10 - Alcohol abuse, uncomplicated Status: Chronic Assessment and Plan: Drinks about 35 beers weekly. Denies history of withdrawal. - [facility] protocol in place - Ativan PRN - seizure precautions - neurochecks Q4H - IV fluids - antiemetics PRN Prior Studies I have reviewed the following patient records and this information was taken into consideration when formulating the assessment and plan.: previous labs, previous ER visits, previous hospitalizations and previous clinic visits Time Spent with Patient Time with patient: 45 - 74 minutes Hospitalist MIPS Advance Care Plan I have confirmed that the patient's Advanced Care Plan is present, code status is documented, or surrogate decision maker is listed in patient medical record.: Yes Medication Reconciliation I have utilized all available resources to obtain, update and review the patients current medications (includes all prescriptions, OTC, herbals, cannabis, and nutritional supplements).: Yes
[2025-11-14] VITALS (13 sets, daily range): BP systolic 105–136; BP diastolic 65–91; PULSE 80–94; RESP 9–18; TEMP 36.2–37.1; O2SAT 94–100
[2025-11-14] MEDS: PIPERACILLIN/TAZOBACTAM SOD 3.375 GM in SODIUM CHLORIDE 0.9% IV 50 ML 100 ML IVPB (04:47)
[2025-11-14] MEDS: HYDROmorphone HCL INJ (*CRX) 1 MG/ML SYR IV PUSH (05:07)
[2025-11-14] MEDS: KCL 20 MEQ/D5/0.9% SOD CHL 1,000 ML 125 ML IV CONT (05:57)
[2025-11-14 06:45] LABS: Hematocrit 39.2 % (42.0-52.0); Hemoglobin 12.9 g/dL (14.0-18.0); Immature Granulocyte Percent A 0.6 % (0-0.5); Lymphocytes Absolute Auto 1.89 K/mm3 (0.9-3.2); Mean Corpuscular HGB Conc 32.9 g/dl (32-36); Mean Corpuscular Hemoglobin 33.9 pg (26-34); Mean Corpuscular Volume 103.2 fl (80-100); Nucleated Red Blood Cells Absolute Auto 0.000 K/mm3 (0.0-0.012); Nucleated Red Blood Cells Perc 0.0 % (0.0-0.2); Platelet Count Result 254 k/mm3 (150-375); Red Blood Count 3.80 M/mm3 (4.6-6.20); White Blood Count 9.1 K/mm3 (4.5-10.0)
[2025-11-14 07:09] LABS: Anion Gap 1 mmol/L (4-12); Blood Urea Nitrogen 6 mg/dL (9-20); Calcium 7.9 mg/dL (8.4-10.2); Carbon Dioxide 23 mmol/L (22-30); Chloride 116 mmol/L (98-107); Estimated CRCL calculation 75 ml/min; Estimated Glomerular Filt Rate > 60; Glucose 109 mg/dL (65-110); Potassium 3.6 mmol/L (3.4-5.0); Sodium 140 mmol/L (137-145)
[2025-11-14 07:11] LABS: Add Urine Microscopic? YES; Appearance Urine Cloudy (Clear); Glucose Urine UA Negative (Negative); Leukocyte Esterase Ur Negative LEU/UL (Negative); Nitrate Urine Negative (Negative); Non Pathogenic Casts 0-2; Specific Grav Ur 1.020 (1.001-1.035)
--- NOTE | 2025-11-14 07:45 | PC.NURSE ---
RN and carla transported pt via bed to surgery
--- NOTE | 2025-11-14 08:00 | WPDANESEPPF ---
Anes - Initial Pre Proc Eval Procedure: Operation Date: 11/14/25 08:00 Proposed Procedures p Hemorrhoidectomy, Anal Rectal Procedure - Loy Berkowitz MD Date/Time: 11/14/25 08:00 Surgeon: Srikanth Pyle MD Pre Op Diagnosis: Prolapsed, Thrombosed hemorrhoid Patient Data Age: 55 Gender: M Height: 1.83 m Weight: 65.9 kg Last Vital Signs Temp 97.9 F 11/14/25 06:00 Pulse 80 11/14/25 06:00 Resp 18 11/14/25 06:00 BP 121/79 11/14/25 06:00 Pulse Ox 94 11/14/25 06:00 O2 Del Method Room Air 11/14/25 07:23 Allergies Allergy/AdvReac Type Severity Reaction Status Date / Time lisinopril Allergy Swelling Verified 11/13/25 17:44 Home Medications ?Medication ?Instructions ?Recorded ?Confirmed ?Type allopurinol 100 mg tablet 1 tablet PO DAILY 04/18/22 11/13/25 History atorvastatin 40 mg tablet 40 tablet PO DAILY 04/18/22 11/13/25 History fenofibrate nanocrystallized 145 1 tablet PO DAILY 04/18/22 11/13/25 History mg tablet losartan 50 mg tablet 1 tablet PO DAILY 04/18/22 11/13/25 History budesonide-formoterol HFA 160 2 puff inhalation BID 08/06/22 11/13/25 History mcg-4.5 mcg/actuation aerosol inhaler (Symbicort) albuterol sulfate 90 mcg/actuation 1 puff inhalation PRN 11/13/25 11/13/25 History aerosol inhaler Laboratory Tests 11/13/25 11/13/25 11/14/25 14:45 14:45 00:08 WBC 9.8 K/mm3 (4.5-10.0) RBC 4.46 L M/mm3 (4.6-6.20) Hgb 15.4 g/dL (14.0-18.0) Hct 43.7 % (42.0-52.0) MCV 98.0 fl (80-100) MCH 34.5 H pg (26-34) MCHC 35.2 g/dl (32-36) RDW 13.0 % (11.5-14.5) Plt Count 314 k/mm3 (150-375) MPV 8.9 fl (7.4-10.4) Immature Gran % (Auto) 0.7 H % (0-0.5) Neut % (Auto) 68.3 % (45.5-73.1) Lymph % (Auto) 21.1 % (18.3-44.2) [place] % (Auto) 9.0 H % (2.6-8.5) Eos % (Auto) 0.5 % (0-4.4) Baso % (Auto) 0.4 % (0.2-1.2) Lymph # (Auto) 2.07 K/mm3 (0.9-3.2) [place] # (Auto) 0.9 H K/mm3 (0.1-0.6) Eos # (Auto) 0.1 K/mm3 (0-0.3) Baso # (Auto) 0.0 K/mm3 (0.0-0.1) Abs Immat Gran (auto) 0.07 H K/mm3 (0.00-0.031) Absolute Neuts (auto) 6.7 K/mm3 (1.3-6.7) Absolute Nucleated RBC 0.000 K/mm3 (0.0-0.012) Nucleated RBC % 0.0 % (0.0-0.2) PT 13.6 Seconds (11.1-14.7) INR 1.0 APTT 27.8 Seconds (22.3-36.8) Sodium 138 mmol/L (137-145) Potassium 3.2 L mmol/L (3.4-5.0) Chloride 110 H mmol/L (98-107) Carbon Dioxide 21 L mmol/L (22-30) Anion Gap 7 mmol/L (4-12) BUN 9 mg/dL (9-20) Creatinine 0.89 mg/dL (0.7-1.3) Estim Creat Clear Calc 77 ml/min Estimated GFR > 60 (59 - ) Glucose 97 mg/dL (65-110) POC Capillary Glucose 119 H mg/dl (65-105) Lactic Acid 1.7 mmol/L (0.7-2.0) Calcium 8.6 mg/dL (8.4-10.2) Total Bilirubin 0.9 mg/dL (0.2-1.3) AST 53 U/L (17-59) ALT 24 U/L (6-50) Alkaline Phosphatase 64 U/L (38-126) C-Reactive Protein < 0.5 mg/dL Cancelled (<1.0) Total Protein 6.8 g/dL (6.3-8.2) Albumin 3.7 g/dL (3.5-5.1) Urine Color Urine Appearance Urine pH Ur Specific [place] Urine Protein Urine Glucose (UA) Urine Ketones Ur Blood (Man) Urine Nitrate Urine Bilirubin Urine Urobilinogen Leukocyte Esterase Rfl Urine RBC Urine WBC Ur Squamous Epith Cells Urine Bacteria Urine Casts Ethyl Alcohol < 10 mg/dL (<10) 11/14/25 11/14/25 11/14/25 06:14 06:15 06:27 WBC 9.1 K/mm3 (4.5-10.0) RBC 3.80 L M/mm3 (4.6-6.20) Hgb 12.9 L g/dL (14.0-18.0) Hct 39.2 L % (42.0-52.0) MCV 103.2 H D fl (80-100) MCH 33.9 pg (26-34) MCHC 32.9 g/dl (32-36) RDW 13.0 % (11.5-14.5) Plt Count 254 k/mm3 (150-375) MPV 9.1 fl (7.4-10.4) Immature Gran % (Auto) 0.6 H % (0-0.5) Neut % (Auto) 68.0 % (45.5-73.1) Lymph % (Auto) 20.8 % (18.3-44.2) [place] % (Auto) 9.1 H % (2.6-8.5) Eos % (Auto) 0.9 % (0-4.4) Baso % (Auto) 0.6 % (0.2-1.2) Lymph # (Auto) 1.89 K/mm3 (0.9-3.2) [place] # (Auto) 0.8 H K/mm3 (0.1-0.6) Eos # (Auto) 0.1 K/mm3 (0-0.3) Baso # (Auto) 0.1 K/mm3 (0.0-0.1) Abs Immat Gran (auto) 0.05 H K/mm3 (0.00-0.031) Absolute Neuts (auto) 6.2 K/mm3 (1.3-6.7) Absolute Nucleated RBC 0.000 K/mm3 (0.0-0.012) Nucleated RBC % 0.0 % (0.0-0.2) PT INR APTT Sodium 140 mmol/L (137-145) Potassium 3.6 mmol/L (3.4-5.0) Chloride 116 H mmol/L (98-107) Carbon Dioxide 23 mmol/L (22-30) Anion Gap 1 L mmol/L (4-12) BUN 6 L mg/dL (9-20) Creatinine 0.90 mg/dL (0.7-1.3) Estim Creat Clear Calc 75 ml/min Estimated GFR > 60 (59 - ) Glucose 109 mg/dL (65-110) POC Capillary Glucose 128 H mg/dl (65-105) Lactic Acid Calcium 7.9 L mg/dL (8.4-10.2) Total Bilirubin AST ALT Alkaline Phosphatase C-Reactive Protein Total Protein Albumin Urine Color Urine Appearance Urine pH Ur Specific [place] Urine Protein Urine Glucose (UA) Urine Ketones Ur Blood (Man) Urine Nitrate Urine Bilirubin Urine Urobilinogen Leukocyte Esterase Rfl Urine RBC Urine WBC Ur Squamous Epith Cells Urine Bacteria Urine Casts Ethyl Alcohol 11/14/25 06:40 WBC RBC Hgb Hct MCV MCH MCHC RDW Plt Count MPV Immature Gran % (Auto) Neut % (Auto) Lymph % (Auto) [place] % (Auto) Eos % (Auto) Baso % (Auto) Lymph # (Auto) [place] # (Auto) Eos # (Auto) Baso # (Auto) Abs Immat Gran (auto) Absolute Neuts (auto) Absolute Nucleated RBC Nucleated RBC % PT INR APTT Sodium Potassium Chloride Carbon Dioxide Anion Gap BUN Creatinine Estim Creat Clear Calc Estimated GFR Glucose POC Capillary Glucose Lactic Acid Calcium Total Bilirubin AST ALT Alkaline Phosphatase C-Reactive Protein Total Protein Albumin Urine Color Yellow (Yellow) Urine Appearance Cloudy H (Clear) Urine pH 5.5 (5.0-9.0) Ur Specific [place] 1.020 (1.001-1.035) Urine Protein Negative mg/dL (Negative) Urine Glucose (UA) Negative mg/dL (Negative) Urine Ketones Trace H mg/dL (Negative) Ur Blood (Man) Negative (Negative) Urine Nitrate Negative (Negative) Urine Bilirubin Negative (Negative) Urine Urobilinogen 0.2 mg/dL (<2.0) Leukocyte Esterase Rfl Negative [place]/UL (Negative) Urine RBC 0-2 /hpf (0-2) Urine WBC 0-5 /hpf (0-3) Ur Squamous Epith Cells None seen /hpf (Few) Urine Bacteria None seen /hpf Urine Casts 0-2 Ethyl Alcohol Patient hx anesthesia problems: none Family hx anesthesia problems: none Results Review: All pre-operative results and documents have been reviewed as part of the pre-operative evaluation. [facility] Past Medical History Medical History Alcohol abuse Hyperlipidemia Hypertension Cellulitis of face Dental caries Social History Social History Smoking packs per day: 1 Smoking cigarettes per day: 20.0 Years smoked: 46 Smoking pack-years: 46.00 Smoking status: Current every day smoker Tobacco type: cigarettes Alcohol intake: current Drinks per week: 35 Alcohol use details: on occasion Substance use: former Substance use type: marijuana Other substance usage details: smoked pot in the past Lack of Transportation: No Lack of Food: Never True Current Housing: I Have Housing Concerned About Future Housing: No Difficulty Paying Gas/Electric Bills: No Difficulty Paying for Meds: No Currently Unemployed: No Education: High School Diploma/GED Difficulty w/ Childcare or Family Care: No Living arrangements: with family Spiritual care concerns: No Anes - Eval Final PreProcedure Day of Procedure 11/14/25 08:00 Patient weight: normal and thin Lungs: normal air movement Airway: Mallampati scale class II and special considerations (One upper tooth remains. ) Neurological: alert and oriented Last oral intake: >/= 8 hours ASA classification: III Emergent: no Anesthetic plan: proceed Anesthesia type and monitoring: general ETT and standard monitoring Results Review: All pre-operative results and documents have been reviewed as part of the pre-operative evaluation. HTN, hyperlipidemia, COPD 46 pack year smoker, cannabis use 1 x weekly, heavy ETOH use/abuse 35 beers/week. Pt states that he can walk 1 fos w sob, no cp. Informed Consent: The patient's anesthetic plan and its attendant risks and benefits were discussed with the patient/family/POA. Questions were solicited and answers provided to the satisfaction of the patient/family/POA.
--- NOTE | 2025-11-14 08:09 | PM.IMPN2 ---
Assessment and Plan Assessment and Plan (1) Strangulated grade IV hemorrhoid: Code(s): K64.3 - Fourth degree hemorrhoids Status: Acute Assessment and Plan: Grade 4 non reducible incarcerated circumferential prolapsing internal hemorrhoids. Ischemic areas to the left lateral side. Extremely painful. No bleeding. Incarcerated since 11/12. - Not meeting sirs criteria. WBC WNL. Lactic acid WNL. Blood cultures collected on 11/13: pending - Analgesics: dilaudid 1 mg IV q4 prn and oxycodone 5 mg prn - Zosyn started on 11/13, discontinued on 11/14 as WBC WNL and source control obtained - Bowel regimen - General surgery consult; plan for excisional hemorrhoidectomy on 11/14 s/p excisional hemorrhoidectomy x4 on 11/[address] Berkowitz (2) Hypokalemia: Code(s): E87.6 - Hypokalemia Status: Acute Assessment and Plan: Potassium 3.2 on admission, given 40 mEq p.o. once and started on D5 NS with 20 mEq potassium at 125 ml/hr Continue to monitor (3) Hypertension: Qualifiers: Hypertension type: primary hypertension Qualified Code(s): I10 - Essential (primary) hypertension Code(s): I10 - Essential (primary) hypertension Status: Chronic Assessment and Plan: Chronic, continue losartan 50 mg daily Blood pressures reviewed and remain stable, continue to monitor (4) Alcohol abuse: Code(s): F10.10 - Alcohol abuse, uncomplicated Status: Chronic Assessment and Plan: Drinks about 35 beers weekly. Denies withdrawal history. Last drink 11/10. - CIWA protocol in place - Ativan PRN for CIWA >8 - seizure precautions - neurochecks Q4H - antiemetics PRN Medical Record Review I have reviewed the following patient records and this information was taken into consideration when formulating the assessment and plan.: previous labs Time Spent With Patient Time with patient: 25 - 35 minutes Subjective Date/time seen: 11/14/25 08:09 Interval history: 55-year-old male past medical history of hypertension, hyperlipidemia, alcoholism, and current smoker presents to the hospital with complaints of hemorrhoid pain. Patient is pleasant sitting up comfortably in bed with family at bedside. He states that pain is currently well controlled. He has no complaints denying chest pain, palpitations, shortness of breath, nausea/vomiting, and abdominal pain. He is tolerating a diet. Review of Systems Review of Systems: All systems reviewed & are unremarkable except as noted in HPI and below Exam Narrative: AF HR 80 RR 13 Spo2 94 BP 132/78 General: male in no acute respiratory distress who is nontoxic appearing, sitting up in bed leaning to left side HEENT: Extraocular movement intact. Sclera clear and anicteric. No facial asymmetry. Chest: Lungs are clear to auscultation bilaterally. No wheezes or crackles. CV: Heart was regular rate and rhythm. Abd: Abdomen was soft. Nontender. Nondistended. Positive bowel sounds. Neuro: Patient is alert. Speech is clear. Objective Data Vital Signs Vital Signs: Vital Signs - 24 hr 11/13/25 12:32 11/13/25 14:57 11/13/25 15:55 Temperature 98.0 F Pulse Rate 75 78 71 Respiratory Rate 18 20 20 Blood Pressure 114/75 132/83 139/82 Pulse Oximetry 97 92 95 Oxygen Delivery Room Air 11/13/25 16:30 11/13/25 17:37 11/13/25 21:08 Temperature 98.2 F 97.5 F L 97.8 F Pulse Rate 74 76 77 Respiratory Rate 20 16 17 Blood Pressure 137/86 136/84 131/85 Pulse Oximetry 93 97 97 Oxygen Delivery 11/14/25 06:00 11/14/25 07:23 Temperature 97.9 F Pulse Rate 80 Respiratory Rate 18 Blood Pressure 121/79 Pulse Oximetry 94 Oxygen Delivery Room Air Intake/Output Intake/Output: Intake & Output 11/11/25 11/12/25 11/13/25 11/14/25 23:59 23:59 23:59 23:59 Intake Total 2200 1050 Output Total 100 Balance 2200 950 Meds/Results Medications: Active Medications Generic Name Dose Route Start Last Admin Trade Name Freq PRN Reason Stop Dose Admin Allopurinol 100 mg 11/14/25 09:00 Allopurinol 100 Mg Tablet PO DAILY [facility] Atorvastatin Calcium 40 mg 11/14/25 09:00 Atorvastatin 40 Mg Tablet PO DAILY [facility] Fenofibrate 145 mg 11/14/25 09:00 Fenofibrate 145 Mg Tablet PO DAILY [facility] Fentanyl Citrate 25 mcg 11/14/25 08:02 Fentanyl Citrate Inj (*Crx) 100 Mcg/2 Ml Vial IV PUSH Q2M PRN Pain Folic Acid 1 mg 11/14/25 09:00 Folic Acid 1 Mg Tablet PO DAILY [facility] Hydromorphone HCl 1 mg 11/13/25 18:28 11/14/25 05:07 Hydromorphone Hcl Inj (*Crx) 1 Mg/Ml Syr IV PUSH 1 mg Q4H PRN Administration Pain Rated 7-10 Piperacillin Sod/Tazobactam 50 mls @ 100 mls/hr 11/13/25 22:00 11/14/25 05:58 Sod 3.375 gm/ Sodium Chloride IVPB Infused Q6H JAKOB Infusion Potassium Chloride/Dextrose/Sod Cl 1,000 mls @ 125 mls/hr 11/13/25 18:25 11/14/25 05:57 Kcl 20 Meq/D5/0.9% Sod Chl IV CONT 125 mls/hr .Q8H JAKOB Administration Lactated Ringer's 1,000 mls @ 30 mls/hr 11/14/25 08:05 Lr - Lactated Ringers Iv IV CONT .Q24H JAKOB Lactated Ringer's 1,000 mls @ 30 mls/hr 11/14/25 08:05 Lr - Lactated Ringers Iv IV CONT .Q24H JAKOB Lorazepam 2 mg 11/13/25 22:08 Lorazepam (*Crx) 1 Mg Tablet PO Q2H PRN CIWA>8, HR>100, or DBP>100 Losartan Potassium 50 mg 11/14/25 09:00 Losartan Potassium 50 Mg Tablet PO DAILY [facility] Multivitamins/Calcium 1 tablet 11/14/25 09:00 Therapeutic Multivitamins/Minerals Tab (*Bkc) PO DAILY [facility] Ondansetron HCl 4 mg 11/14/25 08:02 Ondansetron Inj 4 Mg/2 Ml Vial IV PUSH ONCE PRN Nausea Oxycodone HCl 5 mg 11/14/25 08:02 Oxycodone Hcl (*Crx) 5 Mg Tab Ir PO ONCE PRN Pain Fluticasone/Salmeterol 2 puff 11/14/25 08:00 Fluticasone/Salmeterol 115-21 Mcg Inhaler 1 Puff INHALATION Q12HRT [facility] Thiamine HCl 100 mg 11/14/25 09:00 Thiamine Hcl 100 Mg Tablet PO DAILY [facility] Labs Labs: Laboratory Results - last 24 hr 11/13/25 11/13/25 11/14/25 14:45 14:45 00:08 WBC 9.8 RBC 4.46 L Hgb 15.4 Hct 43.7 MCV 98.0 MCH 34.5 H MCHC 35.2 RDW 13.0 Plt Count 314 MPV 8.9 Immature Gran % (Auto) 0.7 H Neut % (Auto) 68.3 Lymph % (Auto) 21.1 [place] % (Auto) 9.0 H Eos % (Auto) 0.5 Baso % (Auto) 0.4 Lymph # (Auto) 2.07 [place] # (Auto) 0.9 H Eos # (Auto) 0.1 Baso # (Auto) 0.0 Abs Immat Gran (auto) 0.07 H Absolute Neuts (auto) 6.7 Absolute Nucleated RBC 0.000 Nucleated RBC % 0.0 PT 13.6 INR 1.0 APTT 27.8 Sodium 138 Potassium 3.2 L Chloride 110 H Carbon Dioxide 21 L Anion Gap 7 BUN 9 Creatinine 0.89 Estim Creat Clear Calc 77 Estimated GFR > 60 Glucose 97 POC Capillary Glucose 119 H Lactic Acid 1.7 Calcium 8.6 Total Bilirubin 0.9 AST 53 ALT 24 Alkaline Phosphatase 64 C-Reactive Protein < 0.5 Cancelled Total Protein 6.8 Albumin 3.7 Urine Color Urine Appearance Urine pH Ur Specific [place] Urine Protein Urine Glucose (UA) Urine Ketones Ur Blood (Man) Urine Nitrate Urine Bilirubin Urine Urobilinogen Leukocyte Esterase Rfl Urine RBC Urine WBC Ur Squamous Epith Cells Urine Bacteria Urine Casts Ethyl Alcohol < 10 11/14/25 11/14/25 11/14/25 06:14 06:15 06:27 WBC 9.1 RBC 3.80 L Hgb 12.9 L Hct 39.2 L MCV 103.2 H D MCH 33.9 MCHC 32.9 RDW 13.0 Plt Count 254 MPV 9.1 Immature Gran % (Auto) 0.6 H Neut % (Auto) 68.0 Lymph % (Auto) 20.8 [place] % (Auto) 9.1 H Eos % (Auto) 0.9 Baso % (Auto) 0.6 Lymph # (Auto) 1.89 [place] # (Auto) 0.8 H Eos # (Auto) 0.1 Baso # (Auto) 0.1 Abs Immat Gran (auto) 0.05 H Absolute Neuts (auto) 6.2 Absolute Nucleated RBC 0.000 Nucleated RBC % 0.0 PT INR APTT Sodium 140 Potassium 3.6 Chloride 116 H Carbon Dioxide 23 Anion Gap 1 L BUN 6 L Creatinine 0.90 Estim Creat Clear Calc 75 Estimated GFR > 60 Glucose 109 POC Capillary Glucose 128 H Lactic Acid Calcium 7.9 L Total Bilirubin AST ALT Alkaline Phosphatase C-Reactive Protein Total Protein Albumin Urine Color Urine Appearance Urine pH Ur Specific [place] Urine Protein Urine Glucose (UA) Urine Ketones Ur Blood (Man) Urine Nitrate Urine Bilirubin Urine Urobilinogen Leukocyte Esterase Rfl Urine RBC Urine WBC Ur Squamous Epith Cells Urine Bacteria Urine Casts Ethyl Alcohol 11/14/25 06:40 WBC RBC Hgb Hct MCV MCH MCHC RDW Plt Count MPV Immature Gran % (Auto) Neut % (Auto) Lymph % (Auto) [place] % (Auto) Eos % (Auto) Baso % (Auto) Lymph # (Auto) [place] # (Auto) Eos # (Auto) Baso # (Auto) Abs Immat Gran (auto) Absolute Neuts (auto) Absolute Nucleated RBC Nucleated RBC % PT INR APTT Sodium Potassium Chloride Carbon Dioxide Anion Gap BUN Creatinine Estim Creat Clear Calc Estimated GFR Glucose POC Capillary Glucose Lactic Acid Calcium Total Bilirubin AST ALT Alkaline Phosphatase C-Reactive Protein Total Protein Albumin Urine Color Yellow Urine Appearance Cloudy H Urine pH 5.5 Ur Specific [place] 1.020 Urine Protein Negative Urine Glucose (UA) Negative Urine Ketones Trace H Ur Blood (Man) Negative Urine Nitrate Negative Urine Bilirubin Negative Urine Urobilinogen 0.2 Leukocyte Esterase Rfl Negative Urine RBC 0-2 Urine WBC 0-5 Ur Squamous Epith Cells None seen Urine Bacteria None seen Urine Casts 0-2 Ethyl Alcohol Quality VTE Prophylaxis VTE prophylaxis: mechanical ordered
--- NOTE | 2025-11-14 08:16 | WPDHPUPDATE1 ---
History and Physical Update Update Date/Time: 11/14/25 08:16 History and Physical has been reviewed, including an updated exam of the patient. There are NO changes in the patient's condition. Risks, benefits, and alternatives have been discussed and questions answered. Patient agrees to proceed with procedure.
[2025-11-14] MEDS: LIDO 1%/EPINEPHRINE 1:100,000 50 ML VIAL (08:50)
--- NOTE | 2025-11-14 09:07 | S_PTH ---
PATIENT: Álvaro Byrne LOC: [id number] U#:[id number] AGE/SX: 55/M ROOM: 317 RE11/13/[address]: Julienne Freedman MD : [id number] BED: 01 DIS: 11/15/2025 SPEC #: [id number] RECD: 11/15/25 08:16 STATUS: HOWARD WHYTE #: [id number] JENNI: 11/14/25 09:[address]: Loy Berkowitz DEPT: [facility] Surgical RECD BY: Elis Guerrero ENTERED: 11/15/25 08:17 SP TYPE: Surgical OTHR DR: Ulises Markham, BLAISE Whalen MD Tissues: A - Hemorroid B - Hemorroid C - Hemorroid D - Hemorroid Procedures: Hematoxylin and Eosin Stain Gross and Microscopic Level 3
[2025-11-14] MEDS: LACTATED RINGERS 1,000 ML 30 ML IV CONT (10:23)
--- NOTE | 2025-11-14 10:25 | P.OP_ITS ---
Procedure Note - Detailed Date of Procedure 11/14/25 Pre-op Diagnosis Grade 4 incarcerated and strangulating internal hemorrhoids Post-op Diagnosis Same Procedure Performed Excisional hemorrhoidectomy x4 Surgeon Loy Berkowitz MD [employer] Marycruz Engle [facility] Anesthesia General Indications Patient is a 55-year-old male who has had longstanding problems with internal hemorrhoids. She was seen at outside emergency room 2 days ago where he received some pain medications and was told to follow today general surgeon because he had a large prolapsing internal hemorrhoids. Overnight he had rapid enlargement and intractable pain is hemorrhoids and presented to our emergency room here at [facility]. On examination he appeared to have incarcerated grade 4 strangulating prolapsed internal hemorrhoids. He is being brought to the operating now for a evaluation anesthesia excisional hemorrhoidectomy of the strangulated hemorrhoids. Findings The patient had 4 quadrant hemorrhoids the largest of which was at the 6 o'clock and the 3 o'clock positions with the patient prone. The the tissue was starting to be so ischemic that there was ulceration and some necrosis of the mucosa over the top the hemorrhoid. He had 2 smaller hemorrhoids at the 9 o'clock. and 12 o'clock positions. All 4 hemorrhoids were excised with only minor narrowing of the anal canal. Description of Procedure After informed consent was obtained patient brought to the operating room placed in the supine position on the gurney and placed under general endotracheal anesthesia. He was then turned onto the operating table in the prone jose armando-knife position taking great care to make sure all the pressure points were well padded. A time-out was then performed correctly identifying the patient as well as procedure to be performed. He was already on scheduled IV antibiotics. The perianal and perineal regions were then prepped and draped usual sterile fashion. I then started the procedure by reducing the hemorrhoids under anesthesia with lubrication. After the hemorrhoids were reduced I kept an reduced for [id number] to elapse some of the venous pooling in the hemorrhoids to reduce. Once this was able to reduce the hemorrhoids did not prolapse. I then placed a lubricated anal speculum into the anal canal and performed a evaluation circumferentially of the distal rectum anal canal. There were no polyps or masses in the distal rectum or anal canal. There were 4 hemorrhoids the largest which was at the 6 o'clock position and a another large hemorrhoid at the 3 o'clock position. Small hemorrhoids were noted at the 9 o'clock and 12 o'clock positions. I 1st started by excising the largest of the hemorrhoids at the 6 o'clock position. An Allis clamp was placed at the apex of the hemorrhoid and then a 2-0 chromic suture was placed through the mucosa of the hemorrhoid. 1% lidocaine mixed with 0.5% Marcaine anesthetic mixture was then injected underneath the hemorrhoid to lifted off of the internal sphincter muscle fibers. I then used a 15 blade scalpel to incise the tissue on either side of the hemorrhoidal column in a ángel configuration extending all the way out onto the perianal skin. I then proceeded to utilized electrocautery to size the tissue and then I spread with Metzenbaum scissors between the hemorrhoid tissue and the internal sphincter muscle fibers. Internal sphincter was preserved without injury. I then excised off the tissue with electrocautery completely and then passed it off the table to be sent to pathology labeled as hemorrhoid 6 o'clock. The incision was then closed by running 2-0 chromic suture in a locking fashion on the way out to the anal verge. At that point I then transition to utilizing a 3-0 Vicryl suture placed in a running locking fashion to close the incision on the perianal skin. A similar procedure was then performed for the 3 remaining hemorrhoids located at the 3 o'clock, 9 o'clock, and 12 o'clock positions. All 3 hemorrhoids were sent to pathology labeled with there respective positions separately. I then irrigated out the anal canal with sterile saline solution. Hemostasis in all the incisions was good. Only minor narrowing of the anal canal was noted. I then proceeded to place a lidocaine jelly soaked Gelfoam packing into the anal canal. I then injected the wrist a local anesthetic mixture around the anal verge for perianal block. Bilateral pudendal nerve blocks were also injected. The area was then cleaned and then 4x4 gauze, ABD pad, and disposable underwear was used for final dressing. The patient tolerated the procedure well no complications. All sponges, needles, and instrument counts were correct at the end procedure. EBL was __50_cc. The patient was awakened and taken to recovery in stable and satisfactory condition. Implants None Estimated Blood Loss 50 Urine Output 100 Drains No Packing Yes (Lidocaine jelly soaked Gelfoam anal canal packing) Pathology Yes (Hemorrhoids x4 to pathology separately) Complications No immediate complications Condition Stable Disposition PACU [facility] Billing Surgery - Charge Forward: Surgery Billing
--- NOTE | 2025-11-14 12:00 | PC.NURSE ---
RN and community health educator picked pt up from surgery and returned him to room via bed. VS stable. pain controlled from local pt received in surgery.
[2025-11-14] MEDS: LOSARTAN POTASSIUM 50 MG TABLET PO (12:14)
[2025-11-14] MEDS: THIAMINE HCL 100 MG TABLET PO (12:14)
[2025-11-14] MEDS: FOLIC ACID 1 MG TABLET PO (12:14)
[2025-11-14] MEDS: FENOFIBRATE 145 MG TABLET PO (12:14)
[2025-11-14] MEDS: HYDROcodone/acetaminophen (*CRX) 5-325 MG TABLET 1 TAB PO ×2 (12:15→16:12)
[2025-11-14] MEDS: IBUPROFEN 600 MG TABLET PO ×2 (12:15→20:29)
[2025-11-14] MEDS: THERAPEUTIC MULTIVITAMINS/MINERALS TAB (*BKC) 1 TABLET PO (12:15)
[2025-11-14] MEDS: ATORVASTATIN 40 MG TABLET PO (12:15)
[2025-11-14] MEDS: FLUTICASONE/SALMETEROL 115-21 MCG INHALER 1 PUFF 2 PUFF INHALATION ×2 (13:12→20:18)
[2025-11-15] MEDS: IBUPROFEN 600 MG TABLET PO (05:52)
[2025-11-15 06:00] VITALS: BP 132/77; PULSE 94; RESP 17; TEMP 36.6; O2SAT 97
[2025-11-15 06:09] LABS: Hematocrit 37.2 % (42.0-52.0); Hemoglobin 12.3 g/dL (14.0-18.0); Mean Corpuscular HGB Conc 33.1 g/dl (32-36); Mean Corpuscular Hemoglobin 34.4 pg (26-34); Mean Corpuscular Volume 103.9 fl (80-100); Platelet Count Result 243 k/mm3 (150-375); Red Blood Count 3.58 M/mm3 (4.6-6.20); White Blood Count 13.1 K/mm3 (4.5-10.0)
[2025-11-15 06:21] LABS: Alanine Aminotransferase 21 U/L (6-50); Albumin Level 3.0 g/dL (3.5-5.1); Alkaline Phosphatase 56 U/L (38-126); Anion Gap 3 mmol/L (4-12); Aspartate Amino Transferase 37 U/L (17-59); Bilirubin,Total 0.3 mg/dL (0.2-1.3); Blood Urea Nitrogen 7 mg/dL (9-20); Calcium 8.5 mg/dL (8.4-10.2); Carbon Dioxide 24 mmol/L (22-30); Chloride 111 mmol/L (98-107); Estimated CRCL calculation 74 ml/min; Estimated Glomerular Filt Rate > 60; Glucose 104 mg/dL (65-110); Potassium 3.4 mmol/L (3.4-5.0); Sodium 138 mmol/L (137-145); Total Protein 5.9 g/dL (6.3-8.2)
[2025-11-15] MEDS: FLUTICASONE/SALMETEROL 115-21 MCG INHALER 1 PUFF 2 PUFF INHALATION (08:22)
[2025-11-15 08:26] VITALS: PULSE 92; RESP 16
[2025-11-15] MEDS: FENOFIBRATE 145 MG TABLET PO (09:57)
[2025-11-15] MEDS: LOSARTAN POTASSIUM 50 MG TABLET PO (09:57)
[2025-11-15] MEDS: ATORVASTATIN 40 MG TABLET PO (09:57)
[2025-11-15] MEDS: THIAMINE HCL 100 MG TABLET PO (09:57)
[2025-11-15] MEDS: FOLIC ACID 1 MG TABLET PO (09:57)
[2025-11-15] MEDS: THERAPEUTIC MULTIVITAMINS/MINERALS TAB (*BKC) 1 TABLET PO (09:57)
[2025-11-15 09:58] LABS: Magnesium 1.6 mg/dL (1.6-2.3)
[2025-11-15] MEDS: POTASSIUM CHLORIDE 20 MEQ ER TABLET PO (09:59)
--- NOTE | 2025-11-15 10:46 | WPDPN ---
Progress Note: A&P Assessment and Plan (1) Strangulated grade IV hemorrhoid: Code(s): K64.3 - Fourth degree hemorrhoids Status: Acute Assessment and Plan: Postop day 1 after 4 quadrant extensive hemorrhoidectomy for strangulating hemorrhoids. Surprisingly very little pain today. Controlled with nonnarcotic oral pain medications. Examination area was bruising but intact incisions and no bleeding. Okay to discharge home today. I instructed the patient to stay on a low-fiber diet for right now. Come back to see me in the office next week. Instructions the not lift anything heavy either. Sitz baths after bowel movements and p.r.n. for comfort. Subjective Date/time seen: 11/15/25 10:46 Interval history: Postop day 1 after extensive 4 quadrant hemorrhoidectomy for strangulating grade 4 non reducible internal hemorrhoids. Surprisingly he has only mild burning and pain today. He is not taking any narcotic pain medications and only some Tylenol. He has some minimal expected drainage but no bleeding. Exam GI: Other: Perianal region has ecchymosis but no hematoma. Hemorrhoidectomy incisions are approximated with sutures in place. No bleeding. No protruding residual hemorrhoids. Objective Data Vital Signs Vital Signs: Vital Signs - 24 hr 11/14/25 10:50 11/14/25 11:05 11/14/25 11:05 Temperature Pulse Rate 80 81 85 Respiratory Rate 13 14 13 Blood Pressure 136/85 134/91 H 130/84 Pulse Oximetry 100 97 97 Oxygen Delivery Room Air Room Air Room Air 11/14/25 11:20 11/14/25 13:00 11/14/25 13:15 Temperature 36.2 C L 36.3 C L Pulse Rate 80 80 82 Respiratory Rate 13 13 12 Blood Pressure 132/78 119/79 122/80 Pulse Oximetry 94 96 95 Oxygen Delivery Room Air 11/14/25 13:30 11/14/25 14:00 11/14/25 15:58 Temperature 36.7 C 37.1 C 37.1 C Pulse Rate 85 94 94 Respiratory Rate 14 14 14 Blood Pressure 129/79 127/69 127/69 Pulse Oximetry 97 97 97 Oxygen Delivery 11/14/25 20:00 11/14/25 20:00 11/14/25 20:17 Temperature 36.6 C Pulse Rate 88 Respiratory Rate 17 Blood Pressure 105/65 105/65 Pulse Oximetry 98 Oxygen Delivery Room Air 11/15/25 06:00 11/15/25 08:26 Temperature 36.6 C Pulse Rate 94 92 Respiratory Rate 17 16 Blood Pressure 132/77 Pulse Oximetry 97 Oxygen Delivery Intake/Output Intake/Output: Intake & Output 11/12/25 11/13/25 11/14/25 11/15/25 23:59 23:59 23:59 23:59 Intake Total 2200 1950 240 Output Total 600 Balance 2200 1350 240 Meds/Results Medications: Active Medications Generic Name Dose Route Start Last Admin Trade Name Freq PRN Reason Stop Dose Admin Acetaminophen 1,000 mg 11/14/25 11:34 Acetaminophen 500 Mg Tablet PO Q6H PRN Mild Pain (1-3) or Fever Hydrocodone Bitart/Acetaminophen 1 tab 11/14/25 11:34 11/14/25 16:12 Hydrocodone/Acetaminophen (*Crx) 5-325 Mg Tablet PO 1 tab Q4H PRN Administration Pain Rated 4-6 Allopurinol 100 mg 11/14/25 09:00 11/15/25 09:57 Allopurinol 100 Mg Tablet PO 100 mg DAILY JAKOB Administration Atorvastatin Calcium 40 mg 11/14/25 09:00 11/15/25 09:57 Atorvastatin 40 Mg Tablet PO 40 mg DAILY JAKOB Administration Docusate Sodium 100 mg 11/15/25 09:00 11/15/25 10:00 Docusate Sodium 100 Mg Capsule PO Not Given [facility] Fenofibrate 145 mg 11/14/25 09:00 11/15/25 09:57 Fenofibrate 145 Mg Tablet PO 145 mg DAILY JAKOB Administration Folic Acid 1 mg 11/14/25 09:00 11/15/25 09:57 Folic Acid 1 Mg Tablet PO 1 mg DAILY JAKOB Administration Hydromorphone HCl 1 mg 11/13/25 18:28 11/14/25 05:07 Hydromorphone Hcl Inj (*Crx) 1 Mg/Ml Syr IV PUSH 1 mg Q4H PRN Administration Pain Rated 7-10 Ibuprofen 600 mg 11/14/25 12:00 11/15/25 05:52 Ibuprofen 600 Mg Tablet PO 600 mg Q8H JAKOB Administration Lorazepam 2 mg 11/13/25 22:08 Lorazepam (*Crx) 1 Mg Tablet PO Q2H PRN CIWA>8, HR>100, or DBP>100 Losartan Potassium 50 mg 11/14/25 09:00 11/15/25 09:57 Losartan Potassium 50 Mg Tablet PO 50 mg DAILY JAKOB Administration Multivitamins/Calcium 1 tablet 11/14/25 09:00 11/15/25 09:57 Therapeutic Multivitamins/Minerals Tab (*Bkc) PO 1 tablet DAILY JAKOB Administration Nicotine 1 patch 11/15/25 09:00 11/15/25 10:00 Nicotine (*Pbkc) 21 Mg Patch TRANSDERM Not Given DAILY JAKOB Ondansetron HCl 4 mg 11/14/25 11:34 Ondansetron Inj 4 Mg/2 Ml Vial IV PUSH Q6H PRN Nausea And Vomiting Polyethylene Glycol 17 gm 11/15/25 09:00 11/15/25 10:01 Polyethylene Glycol 3350 17 Gm Powd.Pack PO Not Given QAM JAKOB Fluticasone/Salmeterol 2 puff 11/14/25 08:00 11/15/25 08:22 Fluticasone/Salmeterol 115-21 Mcg Inhaler 1 Puff INHALATION 2 puff Q12HRT JAKOB Administration Thiamine HCl 100 mg 11/14/25 09:00 11/15/25 09:57 Thiamine Hcl 100 Mg Tablet PO 100 mg DAILY JAKOB Administration Labs Labs: Laboratory Results - last 24 hr 11/14/25 11/14/25 11/15/25 12:00 23:55 05:29 WBC 13.1 H RBC 3.58 L Hgb 12.3 L Hct 37.2 L MCV 103.9 H MCH 34.4 H MCHC 33.1 RDW 12.8 Plt Count 243 MPV 9.4 Sodium 138 Potassium 3.4 Chloride 111 H Carbon Dioxide 24 Anion Gap 3 L BUN 7 L Creatinine 0.91 Estim Creat Clear Calc 74 Estimated GFR > 60 Glucose 104 POC Capillary Glucose 193 H 185 H Calcium 8.5 Magnesium 1.6 Total Bilirubin 0.3 AST 37 ALT 21 Alkaline Phosphatase 56 Total Protein 5.9 L Albumin 3.0 L
--- NOTE | 2025-11-15 12:38 | P.DS_ITS ---
DS: Admitting Diagnosis Discharge Date 11/15/2025 Admitting Diagnosis strangulated grade IV hemorrhoid hypokalemia htn alcohol abuse DS: Discharge Diagnosis Discharge Diagnosis (1) Strangulated grade IV hemorrhoid: Code(s): K64.3 - Fourth degree hemorrhoids Status: Acute (2) Hypokalemia: Code(s): E87.6 - Hypokalemia Status: Acute (3) Hypertension: Qualifiers: Hypertension type: primary hypertension Qualified Code(s): I10 - Essential (primary) hypertension Code(s): I10 - Essential (primary) hypertension Status: Chronic (4) Alcohol abuse: Code(s): F10.10 - Alcohol abuse, uncomplicated Status: Chronic DS: Summary Hospital Course Reason for hospitalization: strangulated grade IV hemorrhoid hypokalemia htn alcohol abuse Hospital Course: 55-year-old male with past medical history of hypertension, hyperlipidemia, alcoholism, and current smoker presented on 11/13/25 with severe, intractable rectal pain due to incarcerated, nonreducible grade IV prolapsing internal hemorrhoids with areas of ischemia. He was admitted for pain control and surgical evaluation. On admission, he was afebrile with stable vital signs and normal white blood cell count, though there was concern for possible ischemia and early infectious complications; empiric IV piperacillin-tazobactam was initiated. Laboratory evaluation was notable for hypokalemia, which was corrected with oral and IV potassium supplementation and remained stable. General Surgery was consulted, and the patient was taken to the operating room on 11/14/25 and underwent a four-quadrant excisional hemorrhoidectomy. Postoperatively, antibiotics were discontinued as there was no evidence of sepsis and adequate source control was achieved. His postoperative course was uncomplicated. He tolerated a diet, ambulated without difficulty, and remained hemodynamically stable prior to discharge. At time of discharge patient stated pain well controlled on the current regimen. He denied any chest pain, palpitations, shortness of breath, nausea/vomiting and abdominal pain. Patient discharged home in a stable condition. He is to follow up with his PCP in 1 week and surgery as scheduled. Status at Discharge Functional status at discharge: independent ambulation Time Spent with Patient Time attestation: Total time spent providing and/or coordinating discharge services: Time spent: Greater than 30 minutes Exam Narrative: AF HR 94 RR 16 SPo2 97 BP 132/77 General: male in no acute respiratory distress who is nontoxic appearing, sitting up on side of bed and ambulating throughout room HEENT: Extraocular movement intact. Sclera clear and anicteric. No facial asymmetry. Chest: Lungs are clear to auscultation bilaterally. No wheezes or crackles. CV: Heart was regular rate and rhythm. Abd: Abdomen was soft. Nontender. Nondistended. Positive bowel sounds. Neuro: Patient is alert. Speech is clear. DS: Data Data Completed and Pending Pending studies at discharge: Pending at discharge 11/14/25 09:07 Surgical [PTH] Routine Surgical [PTH] Routine Surgical [PTH] Routine Surgical [PTH] Routine Labs on day of discharge: Labs from last 24 hours 11/15/25 11/14/25 05:29 23:55 WBC 13.1 H RBC 3.58 L Hgb 12.3 L Hct 37.2 L MCV 103.9 H MCH 34.4 H MCHC 33.1 RDW 12.8 Plt Count 243 MPV 9.4 Sodium 138 Potassium 3.4 Chloride 111 H Carbon Dioxide 24 Anion Gap 3 L BUN 7 L Creatinine 0.91 Estim Creat Clear Calc 74 Estimated GFR > 60 Glucose 104 POC Capillary Glucose 185 H Calcium 8.5 Magnesium 1.6 Total Bilirubin 0.3 AST 37 ALT 21 Alkaline Phosphatase 56 Total Protein 5.9 L Albumin 3.0 L Discharge Plan Discharge Attending physician on discharge: Julienne Freedman Consulting providers: Zeny Stevenson; Srikanth Pyle; Loy Berkowitz Discharging Clinician: Zeny Stevenson Anticipated Discharge Date/Time: 11/15/25 11:38 Patient Disposition: Home Activity: no straining Diet: low fiber Wound Care Instructions: other - see discharge instructions Discharge Instructions: Discharge disposition: May remove dressing in 24 hr and then shower. Protect surgical site from any trauma. Follow up in the office with Dr. Berkowitz in 1-2 weeks. Call [phone] for an appointment. Resume home medications and any prescriptions Postoperative narcotic medication will be sent to the patient's pharmacy. Attached is information on norco No driving for 1 week or while on narcotic medications May use Tylenol and/or ibuprofen in addition to or in place of narcotic pain medications. Sitz baths with warm water after bowel movements and PRN for comfort. Stay on low fiber diet Patient sustained [id number] stool softener if taken any narcotics for pain. You are being discharged with a plan to stop drinking alcohol to improve your health and prevent complications. What to Expect Stopping alcohol can cause withdrawal symptoms, which may start within hours to a few days after your last drink. Symptoms can range from mild to severe. * Common: tremor, sweating, anxiety, nausea, headache, insomnia * Serious (seek care immediately): confusion, hallucinations, seizures, severe agitation, fever Medications: folic acid and thiamine Safety Instructions * Do not drive or operate heavy machinery if feeling shaky, dizzy, or sedated. * Maintain adequate hydration and nutrition. * Avoid sedatives or sleep medications unless specifically prescribed. When to Seek Immediate Care Go to the emergency department or call 911 if you develop seizures, hallucinations, severe confusion, uncontrolled vomiting, chest pain, or worsening symptoms. Monitor blood pressures Take caution while standing, rising, or moving Change positions slowly taking a break between each position change If you standing feel dizzy sit back down and take a break Encouraged to continue with yearly vaccinations Return to the emergency department if he developed sudden shortness of breath, chest pain, nausea, vomiting, upset stomach or intractable diarrhea Return to the emergency department if you develop fever greater than 100.5 Follow-up with the primary care physician within 1-2 weeks Thank you for [facility] for your healthcare needs Patient Instructions: Hydrocodone/Acetaminophen (By mouth), How to Stop Smoking (GEN), Low Fiber Diet (DC), Alcohol Withdrawal (DC), Hemorrhoidectomy (DC) Patient Language: Greenlandic Stand Alone Forms: General Discharge Information Follow-up/Referrals: Rashi,BLAISE Montgomery [Primary Care Provider] - 1 Week Loy Berkowitz MD [Physician, General Surgery] Discharge Medications: New hydrocodone-acetaminophen 5-325 mg tablet 1 tablet PO Q4H PRN (Reason: pain) Qty: 20 0RF thiamine HCl (vitamin B1) [Vitamin B-1] 100 mg Tablet 100 mg PO DAILY Qty: 30 0RF folic acid 1 mg Tablet 1 mg PO DAILY Qty: 30 0RF Continued losartan 50 mg tablet 1 tablet PO DAILY atorvastatin 40 mg tablet 40 tablet PO DAILY allopurinol 100 mg tablet 1 tablet PO DAILY fenofibrate nanocrystallized 145 mg tablet 1 tablet PO DAILY budesonide-formoterol [Symbicort] 160-4.5 mcg/actuation HFA aerosol inhaler 2 puff INHALATION BID albuterol sulfate 90 mcg/actuation HFA aerosol inhaler 1 puff INHALATION PRN Date of admission: 11/13/25 14:55 Primary Care Provider: JezUlises Admitting Provider: Srikanth Pyle Attending physician on admission: Srikanth Pyle Condition: Stable Hospitalist MIPS Heart Failure (Exclusion) Patient has history of Heart Transplant or Left Ventricular Assistive Device?: No IF YES, STOP HERE Heart Failure (Qualifier) Patient has current or prior documentation of LVEF less than or equal to 40%, or mod/servere depressed LVSF?: No IF NO, STOP HERE
== END 2025-11-15 13:37 | disposition home or self-care (01) ==
LOC: ANHED 15:03 → ANH3MEDSUR 15:38
PROVIDERS: Student in an Organized Health Care Education/Training Program; Surgery; Admitting Provider Internal Medicine; Emergency Provider Registered Nurse; PCP Physician Assistant; Visit Provider General Practice
PROC: (CPT 46260; principal; 2025-11-14 08:00)
DX: K64.3 Fourth degree hemorrhoids (principal); E87.6 Hypokalemia; E78.5 Hyperlipidemia, unspecified; I10 Essential (primary) hypertension; F10.10 Alcohol abuse, uncomplicated; F17.210 Nicotine dependence, cigarettes, uncomplicated
CPT/HCPCS: 46260; 36415; 80048; 80053; 81001; 82077; 82948; 83605; 83735; 85025; 85027; 85610; 85730; 86140; 87040; 88304; 94640; 96365; 96375; 99285; A9270; G0378; G0379; J1100; J1171; J1596; J2003; J2004; J2250; J2405; J2543; J2704; J2710; J3480; J7030; J7120